=== PATIENT | female | born 1970 | race Caucasian/White ===

== ENCOUNTER 2017-04-20 13:02 | Emergency (ER) | payer MEDICAID ==
[~2017-04-20] VITALS: Ht 170.2 cm; Wt 113.9 kg
[2017-04-20 13:13] VITALS: BP 112/63
[2017-04-20] MEDS ORDERED: HYDROmorphone HCL 2 MG/ML VL IM ONE (14:45)
[2017-04-20] MEDS ORDERED: PROMETHAZINE HCL 25 MG/ML 1ML IM ONE (14:45)
[2017-04-20] MEDS ORDERED: diphenhdrAMINE HCL 25 MG CAP PO ONE (15:30)
== END 2017-04-20 15:38 | disposition home or self-care (01) ==
LOC: ER 13:02
DX: G89.29 Other chronic pain (principal); M54.5 Low back pain; J45.901 Unspecified asthma with (acute) exacerbation; Z88.6 Allergy status to analgesic agent
CPT/HCPCS: 96372; 99284; J1170; J2550

== ENCOUNTER 2017-05-12 16:12 | Emergency (ER) | payer MEDICAID ==
[~2017-05-12] VITALS: Ht 170.2 cm; Wt 115.8 kg
[2017-05-12 16:27] VITALS: BP 148/91
== END 2017-05-12 17:20 | disposition home or self-care (01) ==
LOC: ER 16:21
DX: L23.9 Allergic contact dermatitis, unspecified cause (principal); J45.909 Unspecified asthma, uncomplicated

== ENCOUNTER 2017-05-27 06:12 | Emergency (ER) | payer MEDICAID ==
[~2017-05-27] VITALS: Ht 170.2 cm; Wt 113.9 kg
[2017-05-27 07:02] LABS: Urine Bilirubin Negative (Negative); Urine Blood 1+ /uL (Negative); Urine Color Yellow (Yellow); Urine Glucose Normal (Normal); Urine Ketone Negative (Negative); Urine Mucus FEW (None Seen); Urine Nitrite Negative (Negative); Urine RBC <1 /hpf (0 - 4); Urine Squamous Epithelial Cell FEW /hpf (<5); Urine Urobilinogen Normal (Negative); Urine pH 5.5 (5.0-8.0)
[2017-05-27 07:21] LABS: Basophils # (auto) 0 uL; Basophils % (auto) 0.7 % (0.0-2.0); Eosinophils # (auto) 0.1 uL; Eosinophils % (auto) 1.5 % (0.0-7.0); Hematocrit 38.2 % (36.0-46.0); Hemoglobin 12.8 g/dL (12.2-16.2); Lymphocytes # (auto) 1.6 uL; Lymphocytes % (auto) 21.2 % (10.0-50.0); Mean Corpuscular Hemoglobin 29.6 pg (28.0-32.0); Mean Corpuscular Hgb Conc. 33.6 g/dL (32.0-36.0); Mean Corpuscular Volume 88.3 fL (80.0-100.0); Mean Platelet Volume 8.7 fL (6.9-10.8); Monocytes # (auto) 0.4 uL; Monocytes % (auto) 5.5 % (0.0-12.0); Neutrophils # (auto) 5.3 uL; Neutrophils % (auto) 71.1 % (37.0-80.0); Platelet Count (auto) 322 10^3/uL (140-450); Red Cell Distribution Width 14.3 % (11.8-14.3); White Blood Cell 7.5 10^3/uL (4.4-10.8)
[2017-05-27 07:40] LABS: Albumin 3.6 g/dL (3.4-5.0); BUN/Creatinine Ratio 20.5; Bilirubin, Total 0.7 mg/dL (0.2-1.0); Calcium 8.6 mg/dL (8.5-10.1); Potassium 3.9 mmol/L (3.5-5.1)
[2017-05-27] MEDS ORDERED: SODIUM CHLORIDE 0.9% 1,000 ML IVB ONE (10:20)
[2017-05-27] MEDS ORDERED: PROMETHAZINE HCL 25 MG/ML 1ML IV PRN (10:30)
[2017-05-27] MEDS ORDERED: NALBUPHINE HCL 10 MG/1ml INJECTION IV ONE (10:30)
[2017-05-27] MEDS ORDERED: PROMETHAZINE HCL 25 MG/ML 1ML ONE (10:33)
[2017-05-27 13:38] VITALS: BP 132/76
== END 2017-05-27 13:39 | disposition home or self-care (01) ==
LOC: ER 06:12
DX: K52.9 Noninfective gastroenteritis and colitis, unspecified (principal); K90.49 Malabsorption due to intolerance, not elsewhere classified; J45.909 Unspecified asthma, uncomplicated; Z88.6 Allergy status to analgesic agent
CPT/HCPCS: 36415; 74176; 80053; 81001; 81025; 82150; 83690; 85025; 94761; 96361; 96374; 96375; 99285; J2300; J2550; J7030

== ENCOUNTER 2017-11-20 16:52 | Emergency (ER) | payer MEDICAID ==
[~2017-11-20] VITALS: Ht 170.2 cm; Wt 117.9 kg
[2017-11-20] MEDS ORDERED: HYDROmorphone HCL 2 MG/ML VL IV ONE (17:30)
[2017-11-20] MEDS ORDERED: METOCLOPRAMIDE HCL 5MG/ml INJ 2ml VIAL IV ONE (17:30)
[2017-11-20 19:13] LABS: Basophils # (auto) 0 uL; Basophils % (auto) 0.5 % (0.0-2.0); Eosinophils # (auto) 0.2 uL; Eosinophils % (auto) 3.1 % (0.0-7.0); Hematocrit 28.6 % (36.0-46.0); Hemoglobin 9.6 g/dL (12.2-16.2); Lymphocytes # (auto) 1.4 uL; Lymphocytes % (auto) 24.2 % (10.0-50.0); Mean Corpuscular Hemoglobin 29.2 pg (28.0-32.0); Mean Corpuscular Hgb Conc. 33.5 g/dL (32.0-36.0); Mean Corpuscular Volume 87.2 fL (80.0-100.0); Monocytes # (auto) 0.5 uL; Monocytes % (auto) 8.7 % (0.0-12.0); Neutrophils # (auto) 3.7 uL; Neutrophils % (auto) 63.5 % (37.0-80.0); Nucleated Red Blood Cells % 0.3 %; Platelet Count (auto) 387 10^3/uL (140-450); Red Blood Cells 3.28 10^6/uL (4.0-5.20); Red Cell Distribution Width 15.1 % (11.8-14.3); White Blood Cell 5.9 10^3/uL (4.4-10.8)
[2017-11-20 19:17] LABS: Albumin 2.9 g/dL (3.4-5.0); BUN/Creatinine Ratio 16.2; Calcium 8.4 mg/dL (8.5-10.1); Potassium 3.7 mmol/L (3.5-5.1)
[2017-11-20 19:29] LABS: Bilirubin, Total 0.3 mg/dL (0.2-1.0); Total Protein 7.3 g/dL (6.4-8.2)
[2017-11-20 20:35] VITALS: BP 149/98
== END 2017-11-20 20:49 | disposition home or self-care (01) ==
LOC: EDBD 16:52 → ER 16:55
DX: G89.29 Other chronic pain (principal); M54.5 Low back pain; J45.909 Unspecified asthma, uncomplicated; M79.604 Pain in right leg; Z88.6 Allergy status to analgesic agent; X58.XXXA Exposure to other specified factors, initial encounter; Y93.89 Activity, other specified; Y92.89 Other specified places as the place of occurrence of the external cause; Y99.8 Other external cause status
CPT/HCPCS: 36415; 80053; 85025; 93971; 94761; 96374; 96375; 99285; J1170; J2765

== ENCOUNTER 2018-02-27 10:35 | Observation (INO) | payer MEDICAID ==
[~2018-02-27] VITALS: Ht 170.2 cm; Wt 114.8 kg
[2018-02-27 10:54] LABS: Urine WBC None Seen /hpf (0 - 5)
[2018-02-27 11:03] LABS: Urine Pregnacy Test Negative (Negative)
[2018-02-27 11:05] LABS: Basophils # (auto) 0 uL; Basophils % (auto) 0.5 % (0.0-2.0); Eosinophils # (auto) 0.1 uL; Eosinophils % (auto) 1.8 % (0.0-7.0); Hematocrit 38.8 % (36.0-46.0); Hemoglobin 12.6 g/dL (12.2-16.2); Lymphocytes # (auto) 2.2 uL; Lymphocytes % (auto) 35.7 % (10.0-50.0); Mean Corpuscular Hemoglobin 27.1 pg (28.0-32.0); Mean Corpuscular Hgb Conc. 32.6 g/dL (32.0-36.0); Mean Corpuscular Volume 83.1 fL (80.0-100.0); Monocytes # (auto) 0.4 uL; Neutrophils # (auto) 3.4 uL; Nucleated Red Blood Cells % 0.1 %; Platelet Count (auto) 369 10^3/uL (140-450); Red Blood Cells 4.67 10^6/uL (4.0-5.20); Red Cell Distribution Width 16.6 % (11.8-14.3); White Blood Cell 6.1 10^3/uL (4.4-10.8)
[2018-02-27 11:18] LABS: Alcohol, Urine < 3.0 mg/dL (0-5); Amphetamine Screen, Urine NEGATIVE (NEGATIVE); Barbiturate Scree,Urine NEGATIVE (NEGATIVE); Benzodiazephine Screen, Urine NEGATIVE (NEGATIVE); Cannabinoid Screen, Urine NEGATIVE (NEGATIVE); Cocaine Screen, Urine NEGATIVE (NEGATIVE); Opiate Scree,Urine NEGATIVE (NEGATIVE); Phencyclidine Screen, Urine NEGATIVE (NEGATIVE)
[2018-02-27 11:26] LABS: Alanine Aminotransferase 21 U/L (13-56); Albumin 3.6 g/dL (3.4-5.0); Alkaline Phosphatase 110 U/L (45-117); Anion Gap 9 (5-15); Aspartate Aminotransferase 11 U/L (15-37); BUN/Creatinine Ratio 18.9; Bilirubin, Total 0.6 mg/dL (0.2-1.0); Blood Urea Nitrogen 14 mg/dL (7-18); Calcium 8.7 mg/dL (8.5-10.1); Carbon Dioxide 22 mmol/L (21-32); Chloride 107 mmol/L (98-107); GFR African American 109 mL/min; GFR Non-African American 90 mL/min; Glucose 98 mg/dL (74-106); Sodium 138 mmol/L (136-145); Total Protein 8.4 g/dL (6.4-8.2)
[2018-02-27 11:31] LABS: Urine Bacteria FEW /hpf (None Seen); Urine Blood Negative /uL (Negative); Urine Hyaline Cast FEW /lpf (0 - 2); Urine Mucus FEW (None Seen); Urine Specific Gravity 1.028 (1.001-1.035)
[2018-02-27] MEDS ORDERED: ASPirin 81 mg TAB PO ONE (13:15)
[2018-02-27 13:48] LABS: INR 0.94 (0.9-1.15); Partial Thromboplastin Time 28.5 sec (23.78-33.04); Prothrombin Time 10.1 sec (9.27-12.13)
[2018-02-27] MEDS ORDERED: PROMETHAZINE HCL 25 MG/ML 1ML ONE (14:43)
[2018-02-27] MEDS ORDERED: IOHEXOL 350 MG/ML 100ML IJ ONE (14:47)
[2018-02-27] MEDS ORDERED: PROMETHAZINE HCL 25 MG/ML 1ML IV ONE (16:00)
[2018-02-27 19:30] VITALS: BP 137/82
== END 2018-02-27 20:16 | disposition home or self-care (01) | DRG 203 ==
LOC: ER 10:37 → OVERFLOW 10:38 → ER 20:16
PROVIDERS: ADMIT Family Medicine; ATTEND Family Medicine
DX: R07.89 Other chest pain (principal); J45.909 Unspecified asthma, uncomplicated; Z98.890 Other specified postprocedural states
CPT/HCPCS: 36415; 71046; 71275; 80053; 80307; 81001; 81025; 83735; 83880; 84443; 84484; 85025; 85379; 85610; 85730; 93005; 96374; 99285; G0378; J2550; Q9967

== ENCOUNTER 2018-10-10 09:45 | Emergency (ER) | payer MEDICAID ==
[~2018-10-10] VITALS: Ht 170.2 cm; Wt 132.9 kg
[2018-10-10 10:15] VITALS: BP 171/92
== END 2018-10-10 11:01 | disposition home or self-care (01) ==
LOC: ER 09:45
DX: S63.501A Unspecified sprain of right wrist, initial encounter (principal); J45.909 Unspecified asthma, uncomplicated; Z88.5 Allergy status to narcotic agent; X50.9XXA Other and unspecified overexertion or strenuous movements or postures, initial encounter; Y93.89 Activity, other specified; Y99.8 Other external cause status; Y92.89 Other specified places as the place of occurrence of the external cause
CPT/HCPCS: 29125; 73110

== ENCOUNTER 2019-01-27 01:24 | Emergency (ER) | payer MEDICAID ==
[~2019-01-27] VITALS: Ht 170.2 cm; Wt 132.0 kg
[2019-01-27] MEDS ORDERED: LORazepam 2MG/ML-1ML VIAL IV ONE (03:45)
[2019-01-27] MEDS ORDERED: SODIUM CHLORIDE 0.9% 1,000 ML IV ONE (03:45)
[2019-01-27 04:09] LABS: Basophils # (auto) 0 uL; Basophils % (auto) 0.4 % (0.0-2.0); Eosinophils # (auto) 0.1 uL; Eosinophils % (auto) 0.9 % (0.0-7.0); Hematocrit 38.4 % (36.0-46.0); Hemoglobin 12.7 g/dL (12.2-16.2); Lymphocytes # (auto) 1.5 uL; Lymphocytes % (auto) 23.5 % (10.0-50.0); Mean Corpuscular Hemoglobin 28.2 pg (28.0-32.0); Mean Corpuscular Volume 85.5 fL (80.0-100.0); Monocytes # (auto) 0.4 uL; Monocytes % (auto) 6.1 % (0.0-12.0); Neutrophils # (auto) 4.4 uL; Neutrophils % (auto) 69.1 % (37.0-80.0); Platelet Count (auto) 384 10^3/uL (140-450); Red Blood Cells 4.49 10^6/uL (4.0-5.20); Red Cell Distribution Width 16.9 % (11.8-14.3); White Blood Cell 6.4 10^3/uL (4.4-10.8)
[2019-01-27 04:28] LABS: Albumin 3.6 g/dL (3.4-5.0); BUN/Creatinine Ratio 21.8; Calcium 8.8 mg/dL (8.5-10.1); Potassium 3.6 mmol/L (3.5-5.1)
[2019-01-27] MEDS ORDERED: ONDANSETRON HCL 4 MG/2 ML VIAL IV ONE (04:30)
[2019-01-27 04:31] LABS: Bilirubin, Total 0.5 mg/dL (0.2-1.0); Total Protein 8.2 g/dL (6.4-8.2)
[2019-01-27 06:14] VITALS: BP 118/70
== END 2019-01-27 05:36 | disposition home or self-care (01) ==
LOC: EDBD 01:24 → ER 01:27
DX: K52.9 Noninfective gastroenteritis and colitis, unspecified (principal); F15.93 Other stimulant use, unspecified with withdrawal; J45.909 Unspecified asthma, uncomplicated; I10 Essential (primary) hypertension; G89.29 Other chronic pain; M54.9 Dorsalgia, unspecified; Z88.5 Allergy status to narcotic agent
CPT/HCPCS: 36415; 74176; 80053; 80329; 85025; 96361; 96374; 96375; 99284; J2060; J2405; J7030

== ENCOUNTER 2019-01-29 07:52 | Emergency (ER) | payer MEDICAID ==
[~2019-01-29] VITALS: Ht 170.2 cm; Wt 117.9 kg
[2019-01-29 10:05] LABS: Basophils # (auto) 0.1 uL; Basophils % (auto) 0.8 % (0.0-2.0); Eosinophils # (auto) 0 uL; Eosinophils % (auto) 0.5 % (0.0-7.0); Hematocrit 37.9 % (36.0-46.0); Hemoglobin 12.7 g/dL (12.2-16.2); Lymphocytes # (auto) 1.5 uL; Lymphocytes % (auto) 20.8 % (10.0-50.0); Mean Corpuscular Hemoglobin 28.2 pg (28.0-32.0); Mean Corpuscular Hgb Conc. 33.5 g/dL (32.0-36.0); Mean Corpuscular Volume 84.3 fL (80.0-100.0); Monocytes # (auto) 0.4 uL; Monocytes % (auto) 5.9 % (0.0-12.0); Neutrophils # (auto) 5.2 uL; Platelet Count (auto) 386 10^3/uL (140-450); Red Cell Distribution Width 16.5 % (11.8-14.3); White Blood Cell 7.2 10^3/uL (4.4-10.8)
[2019-01-29 10:32] LABS: Albumin 3.6 g/dL (3.4-5.0); Calcium 8.9 mg/dL (8.5-10.1); Potassium 3.3 mmol/L (3.5-5.1)
[2019-01-29 10:35] LABS: Bilirubin, Total 0.7 mg/dL (0.2-1.0); Total Protein 8.5 g/dL (6.4-8.2)
[2019-01-29] MEDS ORDERED: KETOROLAC TROMETH 15 mg/ml 1ML VL IV ONE (11:15)
[2019-01-29] MEDS ORDERED: METOCLOPRAMIDE HCL 5MG/ml INJ 2ml VIAL IV ONE (11:15)
[2019-01-29] MEDS ORDERED: SODIUM CHLORIDE 0.9% 1,000 ML IV ONE ×2 (11:45→13:05)
[2019-01-29 11:53] VITALS: BP 147/76
[2019-01-29 13:02] LABS: Urine Bacteria FEW /hpf (None Seen); Urine Blood 3+ /uL (Negative); Urine Mucus MANY (None Seen); Urine Specific Gravity 1.018 (1.001-1.035); Urine WBC 24075 /hpf (0 - 5); Urine WBC Clumps PRESENT /hpf (None Seen)
[2019-01-29] MEDS ORDERED: IOHEXOL 300 MG/ML 100ML BOTTLE IJ ONE (13:28)
[2019-01-29] MEDS ORDERED: POTASSIUM EFFERVESENT TAB 25 MEQ PO ONE (15:30)
== END 2019-01-29 16:17 | disposition home or self-care (01) ==
LOC: ER 07:52 → EDBD 07:52 → ER 16:03
DX: K76.0 Fatty (change of) liver, not elsewhere classified (principal); N39.0 Urinary tract infection, site not specified; E87.6 Hypokalemia; I10 Essential (primary) hypertension; J45.909 Unspecified asthma, uncomplicated; Z88.6 Allergy status to analgesic agent
CPT/HCPCS: 36415; 71046; 74177; 80053; 81001; 82150; 83690; 85025; 93005; 96361; 96374; 96375; 99284; J1885; J2765; J7030; Q9967

== ENCOUNTER 2020-03-09 14:43 | Emergency (ER) | payer MEDICAID ==
[~2020-03-09] VITALS: Ht 170.2 cm; Wt 111.1 kg
[2020-03-09 17:00] VITALS: BP 138/69
== END 2020-03-09 17:11 | disposition home or self-care (01) ==
LOC: ER 14:43
DX: K59.00 Constipation, unspecified (principal); Z88.5 Allergy status to narcotic agent
CPT/HCPCS: 74176

== ENCOUNTER 2020-03-29 21:34 | Emergency (ER) | payer MEDICAID ==
[~2020-03-29] VITALS: Ht 170.2 cm; Wt 129.3 kg
[2020-03-29 22:47] LABS: Basophils # (auto) 0 10 ^3/uL (0-0.2); Basophils % (auto) 0.6 % (0.0-2.0); Eosinophils # (auto) 0.2 10 ^3/uL (0-0.8); Eosinophils % (auto) 3.2 % (0.0-7.0); Hemoglobin 12.4 g/dL (12.2-16.2); Lymphocytes # (auto) 2.3 10 ^3/uL (0.4-5.4); Lymphocytes % (auto) 33.9 % (10.0-50.0); Mean Corpuscular Hemoglobin 28.2 pg (28.0-32.0); Mean Corpuscular Hgb Conc. 33.5 g/dL (32.0-36.0); Mean Corpuscular Volume 84.3 fL (80.0-100.0); Monocytes # (auto) 0.4 10 ^3/uL (0-1.3); Monocytes % (auto) 6.6 % (0.0-12.0); Neutrophils # (auto) 3.7 10 ^3/uL (1.6-8.6); Neutrophils % (auto) 55.7 % (37.0-80.0); Nucleated Red Blood Cells % 0.1 %; Platelet Count (auto) 298 10^3/uL (140-450); Red Blood Cells 4.39 10^6/uL (4.0-5.20); Red Cell Distribution Width 15.7 % (11.8-14.3); White Blood Cell 6.7 10^3/uL (4.4-10.8)
[2020-03-29 23:03] LABS: Albumin 3.9 g/dL (3.4-5.0); Anion Gap 5 (5-15); Blood Urea Nitrogen 16 mg/dL (7-18); Calcium 8.5 mg/dL (8.5-10.1); Carbon Dioxide 29 mmol/L (21-32); Chloride 105 mmol/L (98-107); Glucose 113 mg/dL (74-106); Potassium 3.3 mmol/L (3.5-5.1); Sodium 139 mmol/L (136-145)
[2020-03-29 23:09] LABS: INR 1.02 (0.9-1.15); Partial Thromboplastin Time 25.8 sec (23.0-31.2)
[2020-03-29] MEDS ORDERED: IOHEXOL 350 MG/ML 100ML IJ ONE (23:21)
[2020-03-29 23:26] LABS: Alanine Aminotransferase 32 U/L (13-56); Alkaline Phosphatase 79 U/L (45-117); Aspartate Aminotransferase 23 U/L (15-37); BUN/Creatinine Ratio 18.2; Bilirubin, Total 0.5 mg/dL (0.2-1.0); GFR African American 88 mL/min; GFR Non-African American 73 mL/min; Total Protein 7.6 g/dL (6.4-8.2)
[2020-03-30 02:00] VITALS: BP 111/63
== END 2020-03-30 02:07 | disposition other institution (70) ==
LOC: EDBD 21:34 → ER 21:40
DX: R07.89 Other chest pain (principal); K21.9 Gastro-esophageal reflux disease without esophagitis; I44.4 Left anterior fascicular block; I10 Essential (primary) hypertension; J45.909 Unspecified asthma, uncomplicated; E66.8 Other obesity; Z68.42 Body mass index [BMI] 45.0-49.9, adult; Z98.890 Other specified postprocedural states
CPT/HCPCS: 36415; 71045; 71275; 80053; 83880; 84443; 84484; 84702; 85025; 85379; 85610; 85730; 93005; 93971; 99285; Q9967

== ENCOUNTER 2020-05-09 10:42 | Emergency (ER) | payer MEDICAID ==
[~2020-05-09] VITALS: Ht 170.2 cm; Wt 122.5 kg
[2020-05-09] MEDS ORDERED: SODIUM CHLORIDE 0.9% 1,000 ML IV ONE (11:45)
[2020-05-09] MEDS ORDERED: SODIUM CHLORIDE 0.9% 1,000 ML IVB ONE (11:45)
[2020-05-09 11:56] LABS: Basophils # (auto) 0 10 ^3/uL (0-0.2); Basophils % (auto) 0.7 % (0.0-2.0); Eosinophils # (auto) 0.1 10 ^3/uL (0-0.8); Hemoglobin 12.8 g/dL (12.2-16.2); Lymphocytes # (auto) 1.9 10 ^3/uL (0.4-5.4); Lymphocytes % (auto) 27.1 % (10.0-50.0); Mean Corpuscular Hemoglobin 27.6 pg (28.0-32.0); Mean Corpuscular Hgb Conc. 32.8 g/dL (32.0-36.0); Mean Corpuscular Volume 83.9 fL (80.0-100.0); Monocytes # (auto) 0.4 10 ^3/uL (0-1.3); Monocytes % (auto) 6.4 % (0.0-12.0); Neutrophils # (auto) 4.5 10 ^3/uL (1.6-8.6); Neutrophils % (auto) 63.8 % (37.0-80.0); Nucleated Red Blood Cells % 0.1 %; Platelet Count (auto) 317 10^3/uL (140-450); Red Blood Cells 4.64 10^6/uL (4.0-5.20); Red Cell Distribution Width 15.7 % (11.8-14.3)
[2020-05-09 12:14] LABS: Albumin 4.1 g/dL (3.4-5.0); Calcium 8.8 mg/dL (8.5-10.1); Potassium 3.3 mmol/L (3.5-5.1)
[2020-05-09 12:18] LABS: BUN/Creatinine Ratio 24.5; Bilirubin, Total 0.5 mg/dL (0.2-1.0); Total Protein 7.7 g/dL (6.4-8.2)
[2020-05-09] MEDS ORDERED: POTASSIUM EFFERVESENT TAB 25 MEQ PO ONE (13:00)
[2020-05-09 15:00] VITALS: BP 102/56
[2020-05-09 16:03] LABS: Urine Bacteria FEW /hpf (None Seen); Urine Blood Negative /uL (Negative); Urine Mucus FEW (None Seen); Urine Specific Gravity 1.023 (1.001-1.035); Urine WBC 3 /hpf (0 - 5)
== END 2020-05-09 15:46 | disposition home or self-care (01) ==
LOC: ER 10:42
DX: I95.89 Other hypotension (principal); R42 Dizziness and giddiness; J45.909 Unspecified asthma, uncomplicated; I10 Essential (primary) hypertension; E87.6 Hypokalemia; Z88.6 Allergy status to analgesic agent
CPT/HCPCS: 36415; 71046; 80053; 81001; 83735; 85025; 93005; 96360; 96361; 99285; J7030

== ENCOUNTER 2020-08-29 05:27 | Inpatient (IN) | payer MEDICAID ==
[~2020-08-29] VITALS: Ht 170.2 cm; Wt 263.4 kg
[2020-08-29] MEDS ORDERED: SODIUM CHLORIDE 0.9% 1,000 ML IV ONE (06:30)
[2020-08-29 06:59] LABS: Basophils # (auto) 0 10 ^3/uL (0-0.2); Basophils % (auto) 0.4 % (0.0-2.0); Eosinophils # (auto) 0 10 ^3/uL (0-0.8); Eosinophils % (auto) 0.4 % (0.0-7.0); Hematocrit 38.3 % (36.0-46.0); Hemoglobin 12.8 g/dL (12.2-16.2); Lymphocytes # (auto) 0.7 10 ^3/uL (0.4-5.4); Lymphocytes % (auto) 5.1 % (10.0-50.0); Mean Corpuscular Hemoglobin 29.2 pg (28.0-32.0); Mean Corpuscular Hgb Conc. 33.5 g/dL (32.0-36.0); Monocytes # (auto) 1.2 10 ^3/uL (0-1.3); Monocytes % (auto) 9.2 % (0.0-12.0); Neutrophils % (auto) 84.9 % (37.0-80.0); Nucleated Red Blood Cells % 0.1 %; Platelet Count (auto) 338 10^3/uL (140-450); Red Cell Distribution Width 15.2 % (11.8-14.3); White Blood Cell 12.9 10^3/uL (4.4-10.8)
[2020-08-29] MEDS ORDERED: HYDROmorphone HCL 2 MG/ML VL IV ONE ×2 (07:00→10:45)
[2020-08-29] MEDS ORDERED: METOCLOPRAMIDE HCL 5MG/ml INJ 2ml VIAL IV ONE (07:00)
[2020-08-29 07:16] LABS: Albumin 3.1 g/dL (3.4-5.0); Calcium 8.2 mg/dL (8.5-10.1); Potassium 3.3 mmol/L (3.5-5.1)
[2020-08-29 07:21] LABS: Bilirubin, Total 0.8 mg/dL (0.2-1.0); Total Protein 7.7 g/dL (6.4-8.2)
[2020-08-29 07:22] LABS: Urine Bacteria NONE SEEN /hpf (None Seen); Urine Blood 3+ /uL (Negative); Urine Mucus FEW (None Seen); Urine Specific Gravity 1.033 (1.001-1.035); Urine WBC 21 /hpf (0 - 5)
[2020-08-29] MEDS ORDERED: IOHEXOL 300 MG/ML 100ML BOTTLE IJ ONE (07:40)
[2020-08-29] MEDS ORDERED: LACTATED RINGER'S 1,000 ML IV ONE (08:45)
[2020-08-29] MEDS ORDERED: metroNIDAZOLE 500MG/100ML 100 ML IV ONE (08:45)
[2020-08-29] MEDS ORDERED: CIPROFLOXACIN 400MG/200ML 200 ML IV ONE (10:00)
[2020-08-29] MEDS: POTASSIUM CHL 20MEQ/100ML 100 ML IV SCH ×4 (10:24→12:37)
[2020-08-29] MEDS ORDERED: MORPHINE SULF INJ 2 MG/ML SYRINGE 1ML IV PRN (11:15)
[2020-08-29] MEDS ORDERED: NITROGLYCERIN 0.4 MG SL TAB SL PRN (11:15)
[2020-08-29] MEDS: D5W/SOD CHL 0.45%/KCL 40MEQ 1,000 ML IV SCH ×2 (12:15→23:24)
[2020-08-29] MEDS: metroNIDAZOLE 500MG/100ML 100 ML IV SCH ×2 (14:00→21:49)
[2020-08-29] MEDS: HYDROmorphone HCL 2 MG/ML VL IV PRN ×2 (15:55→21:01)
[2020-08-29] MEDS: ONDANSETRON HCL 4 MG/2 ML VIAL IV PRN (21:01)
[2020-08-29] MEDS: GABAPENTIN 300 MG CAP PO SCH (21:49)
[2020-08-29] MEDS: AMITRIPTYLINE HCL 25 MG TAB PO SCH (21:49)
[2020-08-30] VITALS (7 sets, daily range): BP systolic 119–124; BP diastolic 62–79
[2020-08-30] MEDS: HYDROmorphone HCL 2 MG/ML VL IV PRN ×4 (03:53→21:29)
[2020-08-30] MEDS: ONDANSETRON HCL 4 MG/2 ML VIAL IV PRN ×2 (03:53→11:26)
[2020-08-30] MEDS ORDERED: GABA100C PO (05:02)
[2020-08-30] MEDS ORDERED: AMIT25TA9 PO (05:02)
[2020-08-30] MEDS: metroNIDAZOLE 500MG/100ML 100 ML IV SCH ×3 (06:00→21:33)
[2020-08-30] MEDS: D5W/SOD CHL 0.45%/KCL 40MEQ 1,000 ML IV SCH (07:15)
[2020-08-30 09:04] LABS: Basophils # (auto) 0 10 ^3/uL (0-0.2); Basophils % (auto) 0.2 % (0.0-2.0); Eosinophils # (auto) 0.3 10 ^3/uL (0-0.8); Eosinophils % (auto) 4.3 % (0.0-7.0); Hematocrit 32.9 % (36.0-46.0); Lymphocytes # (auto) 1.1 10 ^3/uL (0.4-5.4); Lymphocytes % (auto) 17.4 % (10.0-50.0); Mean Corpuscular Hemoglobin 29.3 pg (28.0-32.0); Mean Corpuscular Hgb Conc. 33.4 g/dL (32.0-36.0); Mean Corpuscular Volume 87.9 fL (80.0-100.0); Monocytes # (auto) 0.5 10 ^3/uL (0-1.3); Monocytes % (auto) 8.4 % (0.0-12.0); Neutrophils # (auto) 4.4 10 ^3/uL (1.6-8.6); Neutrophils % (auto) 69.7 % (37.0-80.0); Nucleated Red Blood Cells % 0.1 %; Platelet Count (auto) 267 10^3/uL (140-450); Red Blood Cells 3.74 10^6/uL (4.0-5.20); Red Cell Distribution Width 15.2 % (11.8-14.3); White Blood Cell 6.3 10^3/uL (4.4-10.8)
[2020-08-30 09:26] LABS: INR 1.08 (0.9-1.15); Partial Thromboplastin Time 25.7 sec (23.0-31.2)
[2020-08-30 09:27] LABS: Albumin 2.8 g/dL (3.4-5.0); BUN/Creatinine Ratio 14.1; Bilirubin, Total 0.4 mg/dL (0.2-1.0); Calcium 8.5 mg/dL (8.5-10.1)
[2020-08-30] MEDS: GABAPENTIN 300 MG CAP PO SCH ×2 (11:09→21:41)
[2020-08-30] MEDS: cefTRIAXone 1GM/50ML D5W 50 ML IV SCH (11:09)
[2020-08-30] MEDS ORDERED: POTASSIUM CHLORIDE 20 MEQ, LIDOCAINE 1% (LOCAL ANESTH.) 2 ML in SODIUM CHL 0.9% 100 ML IV ONE (13:15)
[2020-08-30] MEDS: SOD CHL 0.9%/ KCL 40MEQ 1,000 ML IV SCH ×2 (16:03→23:42)
[2020-08-30] MEDS: VANCOMYCIN HCL 500MG/5ML ORAL SOL PO SCH ×2 (17:33→21:41)
[2020-08-30] MEDS: AMITRIPTYLINE HCL 25 MG TAB PO SCH (21:40)
[2020-08-31 05:00] VITALS: BP 117/69
[2020-08-31] MEDS: HYDROmorphone HCL 2 MG/ML VL IV PRN ×4 (06:22→21:54)
[2020-08-31] MEDS: metroNIDAZOLE 500MG/100ML 100 ML IV SCH ×3 (06:22→22:01)
[2020-08-31] MEDS: VANCOMYCIN HCL 500MG/5ML ORAL SOL PO SCH ×4 (06:23→22:02)
[2020-08-31 06:55] LABS: Potassium 4.2 mmol/L (3.5-5.1)
[2020-08-31 07:01] LABS: BUN/Creatinine Ratio 10.4; Calcium 8.8 mg/dL (8.5-10.1)
[2020-08-31 09:00] VITALS: BP 121/76
[2020-08-31] MEDS: GABAPENTIN 300 MG CAP PO SCH ×2 (09:01→22:02)
[2020-08-31] MEDS: cefTRIAXone 1GM/50ML D5W 50 ML IV SCH (09:01)
[2020-08-31] MEDS: SOD CHL 0.9%/ KCL 40MEQ 1,000 ML IV SCH ×2 (09:25→11:52)
[2020-08-31] MEDS ORDERED: DICYCLOMINE HCL 10 MG CAP PO PRN (10:15)
[2020-08-31] MEDS: CHOLESTYRAMINE 4 GM POWDER PO SCH ×2 (10:51→17:45)
[2020-08-31 12:36] VITALS: BP 127/78
[2020-08-31 16:35] VITALS: BP 125/78
[2020-08-31] MEDS: ONDANSETRON HCL 4 MG/2 ML VIAL IV PRN (20:25)
[2020-08-31] MEDS: AMITRIPTYLINE HCL 25 MG TAB PO SCH (22:02)
[2020-08-31 22:11] VITALS: BP 163/92
[2020-09-01] MEDS: CHOLESTYRAMINE 4 GM POWDER PO SCH ×4 (00:28→18:30)
[2020-09-01] MEDS: SOD CHL 0.9%/ KCL 40MEQ 1,000 ML IV SCH ×2 (00:29→13:41)
[2020-09-01 04:41] VITALS: BP 93/59
[2020-09-01] MEDS: metroNIDAZOLE 500MG/100ML 100 ML IV SCH ×3 (06:47→21:35)
[2020-09-01] MEDS: HYDROmorphone HCL 2 MG/ML VL IV PRN ×4 (06:49→21:36)
[2020-09-01] MEDS: VANCOMYCIN HCL 500MG/5ML ORAL SOL PO SCH ×4 (06:49→21:36)
[2020-09-01] MEDS: ONDANSETRON HCL 4 MG/2 ML VIAL IV PRN ×2 (07:06→13:40)
[2020-09-01 08:25] VITALS: BP 121/78
[2020-09-01 09:00] VITALS: BP 121/78
[2020-09-01] MEDS: GABAPENTIN 300 MG CAP PO SCH ×2 (09:28→21:36)
[2020-09-01] MEDS: FLORASTOR (S. BOULARDII) 250 MG CAP PO SCH ×2 (11:22→21:36)
[2020-09-01] MEDS ORDERED: DICYCLOMINE HCL (10MG/ML) 2 ML AMPULE IM SCH (12:00)
[2020-09-01 13:00] VITALS: BP 130/83
[2020-09-01] MEDS: KETOROLAC TROMETH 30 MG/ML 1ML VIAL IV PRN (13:40)
[2020-09-01 16:58] VITALS: BP 118/71
[2020-09-01] MEDS: HYOSCYAMINE SULF 0.125 MG ODT TAB PO PRN (21:36)
[2020-09-01] MEDS: AMITRIPTYLINE HCL 25 MG TAB PO SCH (21:36)
[2020-09-01 22:00] VITALS: BP 144/86
[2020-09-02] MEDS: CHOLESTYRAMINE 4 GM POWDER PO SCH ×5 (00:25→23:58)
[2020-09-02] MEDS: HYDROmorphone HCL 2 MG/ML VL IV PRN ×6 (00:33→20:57)
[2020-09-02] MEDS: SOD CHL 0.9%/ KCL 40MEQ 1,000 ML IV SCH (03:13)
[2020-09-02 05:00] VITALS: BP 121/80
[2020-09-02] MEDS: VANCOMYCIN HCL 500MG/5ML ORAL SOL PO SCH ×4 (05:06→21:19)
[2020-09-02] MEDS: metroNIDAZOLE 500MG/100ML 100 ML IV SCH ×3 (05:06→20:57)
[2020-09-02 08:00] VITALS: BP 102/68
[2020-09-02 09:00] VITALS: BP 102/68
[2020-09-02] MEDS: ONDANSETRON HCL 4 MG/2 ML VIAL IV PRN (10:42)
[2020-09-02] MEDS: FLORASTOR (S. BOULARDII) 250 MG CAP PO SCH ×2 (10:42→20:58)
[2020-09-02] MEDS: GABAPENTIN 300 MG CAP PO SCH ×2 (10:42→20:58)
[2020-09-02 13:00] VITALS: BP 136/85
[2020-09-02 16:29] VITALS: BP 139/74
[2020-09-02] MEDS: AMITRIPTYLINE HCL 25 MG TAB PO SCH (20:58)
[2020-09-02 22:00] VITALS: BP 148/94
[2020-09-03] MEDS: HYDROmorphone HCL 2 MG/ML VL IV PRN ×5 (00:17→21:00)
[2020-09-03 05:00] VITALS: BP 132/76
[2020-09-03] MEDS: CHOLESTYRAMINE 4 GM POWDER PO SCH ×2 (05:31→21:02)
[2020-09-03] MEDS: metroNIDAZOLE 500MG/100ML 100 ML IV SCH ×3 (05:31→21:00)
[2020-09-03] MEDS: VANCOMYCIN HCL 500MG/5ML ORAL SOL PO SCH ×4 (05:32→21:01)
[2020-09-03] MEDS: KETOROLAC TROMETH 30 MG/ML 1ML VIAL IV PRN ×3 (05:43→22:46)
[2020-09-03] MEDS: ONDANSETRON HCL 4 MG/2 ML VIAL IV PRN ×2 (05:43→13:04)
[2020-09-03 06:59] LABS: Basophils # (auto) 0 10 ^3/uL (0-0.2); Basophils % (auto) 0.3 % (0.0-2.0); Eosinophils # (auto) 0.3 10 ^3/uL (0-0.8); Eosinophils % (auto) 3.9 % (0.0-7.0); Hematocrit 32.6 % (36.0-46.0); Hemoglobin 10.8 g/dL (12.2-16.2); Lymphocytes # (auto) 1.6 10 ^3/uL (0.4-5.4); Lymphocytes % (auto) 18.9 % (10.0-50.0); Mean Corpuscular Hemoglobin 28.6 pg (28.0-32.0); Mean Corpuscular Volume 86.8 fL (80.0-100.0); Monocytes # (auto) 0.8 10 ^3/uL (0-1.3); Monocytes % (auto) 8.7 % (0.0-12.0); Neutrophils # (auto) 5.9 10 ^3/uL (1.6-8.6); Neutrophils % (auto) 68.2 % (37.0-80.0); Platelet Count (auto) 329 10^3/uL (140-450); Red Blood Cells 3.76 10^6/uL (4.0-5.20); White Blood Cell 8.7 10^3/uL (4.4-10.8)
[2020-09-03 07:17] LABS: Potassium 3.9 mmol/L (3.5-5.1)
[2020-09-03 07:21] LABS: BUN/Creatinine Ratio 12.7; Calcium 8.6 mg/dL (8.5-10.1)
[2020-09-03 09:00] VITALS: BP 115/74
[2020-09-03] MEDS: GABAPENTIN 300 MG CAP PO SCH ×2 (09:55→21:01)
[2020-09-03] MEDS: FLORASTOR (S. BOULARDII) 250 MG CAP PO SCH ×2 (09:56→22:00)
[2020-09-03 13:00] VITALS: BP 118/84
[2020-09-03 17:00] VITALS: BP 119/77
[2020-09-03] MEDS: AMITRIPTYLINE HCL 25 MG TAB PO SCH (21:01)
[2020-09-03 22:00] VITALS: BP 137/82
[2020-09-04] MEDS: HYDROmorphone HCL 2 MG/ML VL IV PRN ×8 (00:19→22:25)
[2020-09-04] MEDS: HYOSCYAMINE SULF 0.125 MG ODT TAB PO PRN ×4 (00:19→19:15)
[2020-09-04 04:54] VITALS: BP 114/72
[2020-09-04] MEDS: metroNIDAZOLE 500MG/100ML 100 ML IV SCH ×3 (06:20→21:32)
[2020-09-04] MEDS: VANCOMYCIN HCL 500MG/5ML ORAL SOL PO SCH ×4 (06:21→21:32)
[2020-09-04 09:00] VITALS: BP 123/75
[2020-09-04] MEDS: GABAPENTIN 300 MG CAP PO SCH ×2 (09:33→21:32)
[2020-09-04] MEDS: FLORASTOR (S. BOULARDII) 250 MG CAP PO SCH ×2 (09:33→21:32)
[2020-09-04] MEDS ORDERED: FUROSEMIDE 40 MG TAB PO ONE (10:15)
[2020-09-04] MEDS ORDERED: POTASSIUM CHL 10 Meq TABLET PO ONE (10:15)
[2020-09-04] MEDS: CHOLESTYRAMINE 4 GM POWDER PO SCH ×2 (11:32→21:32)
[2020-09-04 13:00] VITALS: BP 114/71
[2020-09-04] MEDS: KETOROLAC TROMETH 30 MG/ML 1ML VIAL IV PRN (14:03)
[2020-09-04 17:00] VITALS: BP 120/80
[2020-09-04] MEDS: AMITRIPTYLINE HCL 25 MG TAB PO SCH (21:32)
[2020-09-04 22:09] VITALS: BP 111/73
[2020-09-05] MEDS: HYOSCYAMINE SULF 0.125 MG ODT TAB PO PRN (03:04)
[2020-09-05] MEDS: HYDROmorphone HCL 2 MG/ML VL IV PRN ×7 (03:05→22:55)
[2020-09-05 04:57] VITALS: BP 119/70
[2020-09-05] MEDS: metroNIDAZOLE 500MG/100ML 100 ML IV SCH ×3 (06:18→20:07)
[2020-09-05] MEDS: VANCOMYCIN HCL 500MG/5ML ORAL SOL PO SCH ×4 (06:19→20:22)
[2020-09-05] MEDS: ONDANSETRON HCL 4 MG/2 ML VIAL IV PRN ×2 (09:05→20:20)
[2020-09-05] MEDS: FLORASTOR (S. BOULARDII) 250 MG CAP PO SCH ×2 (09:31→20:22)
[2020-09-05] MEDS: GABAPENTIN 300 MG CAP PO SCH ×2 (09:31→20:08)
[2020-09-05] MEDS: POTASSIUM CHL 10 Meq TABLET PO SCH (09:36)
[2020-09-05] MEDS: CHOLESTYRAMINE 4 GM POWDER PO SCH ×2 (11:11→20:08)
[2020-09-05] MEDS: FUROSEMIDE 40 MG TAB PO SCH (11:53)
[2020-09-05 13:00] VITALS: BP 100/47
[2020-09-05 17:03] VITALS: BP 108/61
[2020-09-05] MEDS: AMITRIPTYLINE HCL 25 MG TAB PO SCH (20:09)
[2020-09-05 22:02] VITALS: BP 117/78
[2020-09-06] MEDS: HYDROmorphone HCL 2 MG/ML VL IV PRN ×7 (02:11→21:18)
[2020-09-06] MEDS: metroNIDAZOLE 500MG/100ML 100 ML IV SCH ×3 (05:12→22:00)
[2020-09-06] MEDS: VANCOMYCIN HCL 500MG/5ML ORAL SOL PO SCH ×4 (05:13→22:00)
[2020-09-06 05:15] VITALS: BP 109/52
[2020-09-06 06:27] LABS: Basophils # (auto) 0 10 ^3/uL (0-0.2); Basophils % (auto) 0.4 % (0.0-2.0); Eosinophils # (auto) 0.1 10 ^3/uL (0-0.8); Eosinophils % (auto) 2.1 % (0.0-7.0); Hematocrit 33.2 % (36.0-46.0); Hemoglobin 11.1 g/dL (12.2-16.2); Lymphocytes # (auto) 1.8 10 ^3/uL (0.4-5.4); Lymphocytes % (auto) 41.4 % (10.0-50.0); Mean Corpuscular Hemoglobin 28.9 pg (28.0-32.0); Mean Corpuscular Hgb Conc. 33.4 g/dL (32.0-36.0); Mean Corpuscular Volume 86.6 fL (80.0-100.0); Monocytes # (auto) 0.4 10 ^3/uL (0-1.3); Neutrophils % (auto) 46.1 % (37.0-80.0); Nucleated Red Blood Cells % 0.1 %; Platelet Count (auto) 389 10^3/uL (140-450); Red Blood Cells 3.83 10^6/uL (4.0-5.20); Red Cell Distribution Width 14.8 % (11.8-14.3); White Blood Cell 4.4 10^3/uL (4.4-10.8)
[2020-09-06 06:52] LABS: Potassium 4.2 mmol/L (3.5-5.1)
[2020-09-06 07:00] LABS: BUN/Creatinine Ratio 18.3; Bilirubin, Total 0.3 mg/dL (0.2-1.0); Calcium 8.5 mg/dL (8.5-10.1)
[2020-09-06] MEDS: POTASSIUM CHL 10 Meq TABLET PO SCH (08:09)
[2020-09-06] MEDS: GABAPENTIN 300 MG CAP PO SCH ×2 (08:10→22:00)
[2020-09-06] MEDS: FUROSEMIDE 40 MG TAB PO SCH (08:12)
[2020-09-06 08:40] VITALS: BP 103/67
[2020-09-06] MEDS: CHOLESTYRAMINE 4 GM POWDER PO SCH ×4 (10:21→23:33)
[2020-09-06] MEDS: FLORASTOR (S. BOULARDII) 250 MG CAP PO SCH ×2 (10:21→22:00)
[2020-09-06 13:00] VITALS: BP 134/68
[2020-09-06] MEDS: ONDANSETRON HCL 4 MG/2 ML VIAL IV PRN ×2 (15:12→20:31)
[2020-09-06 16:46] VITALS: BP 145/78
[2020-09-06] MEDS: SUCRALFATE 1 GM/10 ML ORAL SUSP PO SCH ×2 (17:02→22:00)
[2020-09-06] MEDS: HYOSCYAMINE SULF 0.125 MG ODT TAB PO PRN (20:05)
[2020-09-06] MEDS ORDERED: FURO1TAB33 GT (20:30)
[2020-09-06 22:00] VITALS: BP 113/71
[2020-09-06] MEDS: AMITRIPTYLINE HCL 25 MG TAB PO SCH (22:00)
[2020-09-07] MEDS: HYDROmorphone HCL 2 MG/ML VL IV PRN ×3 (03:45→09:32)
[2020-09-07 05:00] VITALS: BP 120/73
[2020-09-07] MEDS: CHOLESTYRAMINE 4 GM POWDER PO SCH ×4 (05:45→22:46)
[2020-09-07] MEDS: metroNIDAZOLE 500MG/100ML 100 ML IV SCH (06:00)
[2020-09-07] MEDS: VANCOMYCIN HCL 500MG/5ML ORAL SOL PO SCH ×4 (06:00→21:18)
[2020-09-07] MEDS: HYOSCYAMINE SULF 0.125 MG ODT TAB PO PRN ×2 (06:30→17:31)
[2020-09-07] MEDS: ONDANSETRON HCL 4 MG/2 ML VIAL IV PRN ×2 (06:30→21:20)
[2020-09-07] MEDS: SUCRALFATE 1 GM/10 ML ORAL SUSP PO SCH ×4 (06:55→21:18)
[2020-09-07 08:19] VITALS: BP 118/66
[2020-09-07] MEDS: GABAPENTIN 300 MG CAP PO SCH ×2 (09:32→21:20)
[2020-09-07] MEDS: FUROSEMIDE 40 MG TAB PO SCH (09:32)
[2020-09-07] MEDS: FLORASTOR (S. BOULARDII) 250 MG CAP PO SCH ×2 (09:32→21:19)
[2020-09-07] MEDS: POTASSIUM CHL 10 Meq TABLET PO SCH (09:32)
[2020-09-07] MEDS: HYDROmorphone HCL 2 MG TAB PO PRN ×3 (12:38→22:46)
[2020-09-07] MEDS: metroNIDAZOLE 500 MG TAB PO SCH ×2 (13:54→21:19)
[2020-09-07 14:04] VITALS: BP 118/86
[2020-09-07 16:25] VITALS: BP 126/65
[2020-09-07] MEDS: AMITRIPTYLINE HCL 25 MG TAB PO SCH (21:18)
[2020-09-07 22:00] VITALS: BP 148/79
[2020-09-08 05:00] VITALS: BP 149/91
[2020-09-08] MEDS: metroNIDAZOLE 500 MG TAB PO SCH ×4 (05:57→22:35)
[2020-09-08] MEDS: CHOLESTYRAMINE 4 GM POWDER PO SCH ×4 (05:57→23:20)
[2020-09-08] MEDS: VANCOMYCIN HCL 500MG/5ML ORAL SOL PO SCH ×4 (05:57→22:34)
[2020-09-08] MEDS: HYDROmorphone HCL 2 MG TAB PO PRN ×3 (05:58→16:18)
[2020-09-08] MEDS: SUCRALFATE 1 GM/10 ML ORAL SUSP PO SCH ×4 (05:59→22:34)
[2020-09-08] MEDS: ONDANSETRON HCL 4 MG/2 ML VIAL IV PRN (08:39)
[2020-09-08 09:09] VITALS: BP 147/82
[2020-09-08] MEDS: KETOROLAC TROMETH 30 MG/ML 1ML VIAL IV PRN ×2 (10:28→23:11)
[2020-09-08] MEDS: FUROSEMIDE 40 MG TAB PO SCH (10:30)
[2020-09-08] MEDS: GABAPENTIN 300 MG CAP PO SCH ×2 (10:31→22:34)
[2020-09-08] MEDS: POTASSIUM CHL 10 Meq TABLET PO SCH (10:31)
[2020-09-08] MEDS: FLORASTOR (S. BOULARDII) 250 MG CAP PO SCH ×2 (10:31→22:35)
[2020-09-08 13:00] VITALS: BP 131/67
[2020-09-08 16:50] VITALS: BP 162/88
[2020-09-08 22:00] VITALS: BP 100/73
[2020-09-08] MEDS: LORazepam 2MG/ML-1ML VIAL IV PRN (22:33)
[2020-09-08] MEDS: AMITRIPTYLINE HCL 25 MG TAB PO SCH (22:35)
[2020-09-08] MEDS: HYOSCYAMINE SULF 0.125 MG ODT TAB PO PRN (23:11)
[2020-09-09] MEDS: HYDROmorphone HCL 2 MG TAB PO PRN ×2 (00:10→12:26)
[2020-09-09 05:00] VITALS: BP 112/65
[2020-09-09] MEDS: CHOLESTYRAMINE 4 GM POWDER PO SCH ×2 (06:00→11:45)
[2020-09-09] MEDS: metroNIDAZOLE 500 MG TAB PO SCH ×2 (06:15→15:16)
[2020-09-09] MEDS: VANCOMYCIN HCL 500MG/5ML ORAL SOL PO SCH ×2 (06:15→12:25)
[2020-09-09] MEDS: LORazepam 2MG/ML-1ML VIAL IV PRN (06:30)
[2020-09-09] MEDS: SUCRALFATE 1 GM/10 ML ORAL SUSP PO SCH ×2 (06:43→12:24)
[2020-09-09] MEDS: KETOROLAC TROMETH 30 MG/ML 1ML VIAL IV PRN (06:44)
[2020-09-09 08:48] VITALS: BP 111/63
[2020-09-09] MEDS: ONDANSETRON HCL 4 MG/2 ML VIAL IV PRN (11:15)
[2020-09-09] MEDS: POTASSIUM CHL 10 Meq TABLET PO SCH (12:23)
[2020-09-09] MEDS: FLORASTOR (S. BOULARDII) 250 MG CAP PO SCH (12:23)
[2020-09-09] MEDS: FUROSEMIDE 40 MG TAB PO SCH (12:24)
[2020-09-09] MEDS: GABAPENTIN 300 MG CAP PO SCH (12:24)
[2020-09-09 13:00] VITALS: BP 113/52
[2020-09-09 16:39] VITALS: BP 114/67
== END 2020-09-09 17:55 | disposition home or self-care (01) | DRG 248 ==
LOC: EDBD 05:27 → ER 05:27 → EDUNIT# 05:27 → TELE 11:14 → TELE-WESTW 08-30 03:00 → TELE-CENTR 08-30 16:24 → CENTRAL 09-01 10:40
PROVIDERS: ADMIT Nurse Practitioner Acute Care; ATTEND Internal Medicine
PROC: 0S9C3ZZ Drainage of Right Knee Joint, Percutaneous Approach (ICD-10-PCS; principal; 2020-09-09)
DX: A04.72 Enterocolitis due to Clostridium difficile, not specified as recurrent (principal); N20.0 Calculus of kidney; E87.6 Hypokalemia; E66.01 Morbid (severe) obesity due to excess calories; Z68.41 Body mass index [BMI] 40.0-44.9, adult; F11.20 Opioid dependence, uncomplicated; E88.09 Other disorders of plasma-protein metabolism, not elsewhere classified; Z20.822 Contact with and (suspected) exposure to COVID-19; G89.29 Other chronic pain; F32.9 Major depressive disorder, single episode, unspecified; G43.909 Migraine, unspecified, not intractable, without status migrainosus; I10 Essential (primary) hypertension; M25.461 Effusion, right knee; R73.9 Hyperglycemia, unspecified; F39 Unspecified mood [affective] disorder; M54.5 Low back pain; F41.9 Anxiety disorder, unspecified; J45.909 Unspecified asthma, uncomplicated; Z80.3 Family history of malignant neoplasm of breast; Z82.49 Family history of ischemic heart disease and other diseases of the circulatory system; Z87.442 Personal history of urinary calculi; Z90.710 Acquired absence of both cervix and uterus; Z98.84 Bariatric surgery status; Z88.5 Allergy status to narcotic agent
CPT/HCPCS: 10022; 36415; 73700; 73721; 74176; 74177; 76705; 76942; 78226; 80048; 80053; 81001; 83036; 83605; 83690; 83735; 84443; 84702; 85025; 85610; 85730; 87040; 87045; 87070; 87086; 87205; 87426; 87427; 87493; 89051; 89060; G0378; J0696; J1885; J2001; J2405; J3480; J3490

== ENCOUNTER 2020-09-15 00:52 | Emergency (ER) | payer MEDICAID ==
[~2020-09-15] VITALS: Ht 170.2 cm; Wt 106.6 kg
[~2020-09-15 00:52] MED LIST: AMIT25TA12 PO; FURO1TAB33 GT; GABA100C PO
[2020-09-15] MEDS ORDERED: KETOROLAC TROMETH 30 MG/ML 1ML VIAL IV ONE (01:45)
[2020-09-15] MEDS ORDERED: SODIUM CHLORIDE 0.9% 1,000 ML IV ONE (01:45)
[2020-09-15] MEDS ORDERED: ONDANSETRON HCL 4 MG/2 ML VIAL IV ONE (02:00)
[2020-09-15 02:08] LABS: Basophils # (auto) 0.1 10 ^3/uL (0-0.2); Eosinophils # (auto) 0.1 10 ^3/uL (0-0.8); Lymphocytes # (auto) 1.5 10 ^3/uL (0.4-5.4); Mean Corpuscular Hemoglobin 29.2 pg (28.0-32.0); Monocytes # (auto) 0.7 10 ^3/uL (0-1.3); Neutrophils # (auto) 4.8 10 ^3/uL (1.6-8.6); White Blood Cell 7.2 10^3/uL (4.4-10.8)
[2020-09-15 02:09] LABS: Basophils % (auto) 0.8 % (0.0-2.0); Eosinophils % (auto) 1.7 % (0.0-7.0); Hemoglobin 10.1 g/dL (12.2-16.2); Lymphocytes % (auto) 20.4 % (10.0-50.0); Mean Corpuscular Hgb Conc. 33.7 g/dL (32.0-36.0); Mean Corpuscular Volume 86.5 fL (80.0-100.0); Monocytes % (auto) 9.7 % (0.0-12.0); Neutrophils % (auto) 67.4 % (37.0-80.0); Nucleated Red Blood Cells % 0.1 %; Red Blood Cells 3.47 10^6/uL (4.0-5.20); Red Cell Distribution Width 15.7 % (11.8-14.3)
[2020-09-15] MEDS ORDERED: LORazepam 2MG/ML-1ML VIAL ONE (02:12)
[2020-09-15] MEDS ORDERED: LORazepam 2MG/ML-1ML VIAL IV ONE (02:15)
[2020-09-15 02:26] LABS: Albumin 2.7 g/dL (3.4-5.0); BUN/Creatinine Ratio 19.2; Calcium 8.6 mg/dL (8.5-10.1); Potassium 3.2 mmol/L (3.5-5.1)
[2020-09-15 02:29] LABS: Bilirubin, Total 0.2 mg/dL (0.2-1.0); Total Protein 7.6 g/dL (6.4-8.2)
[2020-09-15 06:15] VITALS: BP 131/69
[2021-02-24] MEDS ORDERED: MIDO5TAB3 PO (11:30)
[2021-03-21] MEDS ORDERED: SUCR1TAB22 PO (15:54)
[2021-03-21] MEDS ORDERED: PANT40TA2 PO (15:54)
== END 2020-09-15 06:27 | disposition home or self-care (01) ==
LOC: ER 00:53
DX: M25.561 Pain in right knee (principal)
CPT/HCPCS: 36415; 80053; 83605; 85025; 96361; 96374; 96375; 99284; J1885; J2060; J2405; J7030

== ENCOUNTER 2020-10-26 10:13 | Emergency (ER) | payer MEDICAID ==
[~2020-10-26] VITALS: Ht 170.2 cm; Wt 100.2 kg
[~2020-10-26 10:13] MED LIST changes: -AMIT25TA12 PO; +AMIT25TA9 PO
[2020-10-26 13:14] VITALS: BP 151/84
== END 2020-10-26 13:25 | disposition home or self-care (01) ==
LOC: ER 10:13
DX: J02.9 Acute pharyngitis, unspecified (principal); I10 Essential (primary) hypertension; Z79.899 Other long term (current) drug therapy; Z88.6 Allergy status to analgesic agent
CPT/HCPCS: 71046; 87070; 87880

== ENCOUNTER 2020-12-17 07:38 | Emergency (ER) | payer MEDICAID ==
[~2020-12-17] VITALS: Ht 170.2 cm; Wt 98.4 kg
[2020-12-17 08:12] LABS: Basophils # (auto) 0 10 ^3/uL (0-0.2); Basophils % (auto) 0.5 % (0.0-2.0); Eosinophils # (auto) 0.1 10 ^3/uL (0-0.8); Eosinophils % (auto) 1.4 % (0.0-7.0); Hematocrit 32.7 % (36.0-46.0); Hemoglobin 10.7 g/dL (12.2-16.2); Lymphocytes % (auto) 14.9 % (10.0-50.0); Mean Corpuscular Hemoglobin 29.1 pg (28.0-32.0); Mean Corpuscular Hgb Conc. 32.9 g/dL (32.0-36.0); Mean Corpuscular Volume 88.6 fL (80.0-100.0); Monocytes # (auto) 0.3 10 ^3/uL (0-1.3); Monocytes % (auto) 5.2 % (0.0-12.0); Neutrophils # (auto) 5.1 10 ^3/uL (1.6-8.6); Platelet Count (auto) 246 10^3/uL (140-450); Red Blood Cells 3.69 10^6/uL (4.0-5.20); Red Cell Distribution Width 15.2 % (11.8-14.3); White Blood Cell 6.6 10^3/uL (4.4-10.8)
[2020-12-17 08:33] LABS: Alanine Aminotransferase 26 U/L (13-56); Albumin 3.2 g/dL (3.4-5.0); Anion Gap 4 (5-15); BUN/Creatinine Ratio 18.1; Blood Urea Nitrogen 13 mg/dL (7-18); Calcium 8.2 mg/dL (8.5-10.1); Carbon Dioxide 29 mmol/L (21-32); Chloride 105 mmol/L (98-107); GFR African American 111 mL/min; GFR Non-African American 92 mL/min; Glucose 120 mg/dL (74-106); Magnesium 2.7 mg/dL (1.6-2.6); Sodium 138 mmol/L (136-145)
[2020-12-17 08:39] LABS: Alkaline Phosphatase 81 U/L (45-117); Aspartate Aminotransferase 31 U/L (15-37); Bilirubin, Total 0.2 mg/dL (0.2-1.0); Total Protein 6.9 g/dL (6.4-8.2)
[2020-12-17] MEDS ORDERED: SODIUM CHLORIDE 0.9% 1,000 ML IV ONE (09:00)
[2020-12-17] MEDS ORDERED: KETOROLAC TROMETH 30 MG/ML 1ML VIAL IV ONE (09:00)
[2020-12-17] MEDS ORDERED: OXYCODONE W/ ACETAMINOPHEN 5/325MG TABLET PO ONE (09:00)
[2020-12-17 09:44] LABS: Urine Bacteria NONE SEEN /hpf (None Seen); Urine Blood 3+ /uL (Negative); Urine Mucus FEW (None Seen); Urine Specific Gravity 1.018 (1.001-1.035); Urine WBC 1 /hpf (0 - 5)
[2020-12-17 11:25] VITALS: BP 102/57
== END 2020-12-17 12:42 | disposition home or self-care (01) ==
LOC: ER 07:38
DX: G43.909 Migraine, unspecified, not intractable, without status migrainosus (principal); M79.604 Pain in right leg; R42 Dizziness and giddiness; I11.0 Hypertensive heart disease with heart failure; I50.9 Heart failure, unspecified; F41.9 Anxiety disorder, unspecified; F32.9 Major depressive disorder, single episode, unspecified; Z20.822 Contact with and (suspected) exposure to COVID-19; Z98.890 Other specified postprocedural states
CPT/HCPCS: 36415; 70450; 71045; 80053; 81001; 83735; 84484; 85025; 87426; 93005; 96361; 96374; 99285; J1885

== ENCOUNTER 2020-12-18 06:19 | Emergency (ER) | payer MEDICAID ==
[~2020-12-18] VITALS: Ht 170.2 cm; Wt 95.3 kg
[2020-12-18 06:20] VITALS: BP 121/66
[2020-12-18] MEDS ORDERED: KETOROLAC TROMETH 60MG/2ML VIAL IM ONE (08:00)
== END 2020-12-18 08:39 | disposition home or self-care (01) ==
LOC: ER 06:19
DX: G43.909 Migraine, unspecified, not intractable, without status migrainosus (principal); J20.9 Acute bronchitis, unspecified; F41.9 Anxiety disorder, unspecified; F32.9 Major depressive disorder, single episode, unspecified; Z98.890 Other specified postprocedural states
CPT/HCPCS: 96372; 99283; J1885

== ENCOUNTER 2020-12-25 14:31 | Emergency (ER) | payer MEDICAID ==
[~2020-12-25] VITALS: Ht 170.2 cm; Wt 94.8 kg
[2020-12-25] MEDS ORDERED: SODIUM CHLORIDE 0.9% 1,000 ML IV ONE ×3 (15:15→23:15)
[2020-12-25] MEDS ORDERED: ZINC SULFATE 220mg CAP or TAB PO ONE (15:15)
[2020-12-25] MEDS ORDERED: ASCORBIC ACID 500 MG TAB PO ONE (15:15)
[2020-12-25] MEDS ORDERED: ACETAMINOPHEN 500 MG TAB PO ONE (15:15)
[2020-12-25] MEDS ORDERED: CHOLECALCIFEROL (VITD3) 2,000 UNIT CAP/TAB PO ONE (15:15)
[2020-12-25 15:46] LABS: Basophils # (auto) 0 10 ^3/uL (0-0.2); Basophils % (auto) 0.3 % (0.0-2.0); Eosinophils # (auto) 0 10 ^3/uL (0-0.8); Eosinophils % (auto) 0.3 % (0.0-7.0); Hematocrit 37.9 % (36.0-46.0); Hemoglobin 12.7 g/dL (12.2-16.2); Lymphocytes # (auto) 0.6 10 ^3/uL (0.4-5.4); Lymphocytes % (auto) 11.6 % (10.0-50.0); Mean Corpuscular Hemoglobin 28.5 pg (28.0-32.0); Mean Corpuscular Hgb Conc. 33.4 g/dL (32.0-36.0); Mean Corpuscular Volume 85.3 fL (80.0-100.0); Monocytes # (auto) 0.4 10 ^3/uL (0-1.3); Monocytes % (auto) 6.9 % (0.0-12.0); Neutrophils # (auto) 4.4 10 ^3/uL (1.6-8.6); Neutrophils % (auto) 80.9 % (37.0-80.0); Platelet Count (auto) 349 10^3/uL (140-450); Red Blood Cells 4.44 10^6/uL (4.0-5.20); Red Cell Distribution Width 15.4 % (11.8-14.3); White Blood Cell 5.5 10^3/uL (4.4-10.8)
[2020-12-25 16:03] LABS: Albumin 3.8 g/dL (3.4-5.0); Calcium 8.6 mg/dL (8.5-10.1); Magnesium 2.4 mg/dL (1.6-2.6); Potassium 3.6 mmol/L (3.5-5.1)
[2020-12-25 16:08] LABS: BUN/Creatinine Ratio 13.3; Bilirubin, Total 0.7 mg/dL (0.2-1.0)
[2020-12-25 16:08] LABS: Urine Bacteria FEW /hpf (None Seen); Urine Blood Negative /uL (Negative); Urine Mucus FEW (None Seen); Urine Specific Gravity 1.016 (1.001-1.035); Urine WBC 2 /hpf (0 - 5)
[2020-12-26] MEDS ORDERED: SODIUM CHLORIDE 0.9% 500 ML IV ONE (02:15)
[2020-12-26] MEDS ORDERED: ACETAMINOPHEN 325 MG TAB PO ONE (04:45)
[2020-12-26 05:00] VITALS: BP 103/58
== END 2020-12-26 06:43 | disposition home or self-care (01) ==
LOC: ER 14:31
DX: R50.83 Postvaccination fever (principal); R06.02 Shortness of breath; M79.10 Myalgia, unspecified site; E87.6 Hypokalemia; F41.9 Anxiety disorder, unspecified; F32.9 Major depressive disorder, single episode, unspecified; I10 Essential (primary) hypertension; Z23 Encounter for immunization
CPT/HCPCS: 36415; 71046; 80053; 81001; 83735; 85025; 93005; 96360; 96361; 99285; J7030; J7040

== ENCOUNTER 2021-01-17 22:28 | Emergency (ER) | payer MEDICAID ==
[~2021-01-17] VITALS: Ht 170.2 cm; Wt 90.7 kg
[2021-01-17 23:20] LABS: Basophils # (auto) 0 10 ^3/uL (0-0.2); Basophils % (auto) 0.7 % (0.0-2.0); Eosinophils # (auto) 0.2 10 ^3/uL (0-0.8); Eosinophils % (auto) 3.9 % (0.0-7.0); Hematocrit 35.3 % (36.0-46.0); Hemoglobin 11.4 g/dL (12.2-16.2); Lymphocytes # (auto) 2.6 10 ^3/uL (0.4-5.4); Lymphocytes % (auto) 46.9 % (10.0-50.0); Mean Corpuscular Hemoglobin 27.8 pg (28.0-32.0); Mean Corpuscular Hgb Conc. 32.3 g/dL (32.0-36.0); Mean Corpuscular Volume 86.3 fL (80.0-100.0); Monocytes # (auto) 0.3 10 ^3/uL (0-1.3); Monocytes % (auto) 6.3 % (0.0-12.0); Neutrophils # (auto) 2.3 10 ^3/uL (1.6-8.6); Neutrophils % (auto) 42.2 % (37.0-80.0); Nucleated Red Blood Cells % 0.2 %; Red Blood Cells 4.09 10^6/uL (4.0-5.20); Red Cell Distribution Width 15.9 % (11.8-14.3); White Blood Cell 5.5 10^3/uL (4.4-10.8)
[2021-01-17 23:37] LABS: Albumin 3.4 g/dL (3.4-5.0); Calcium 7.9 mg/dL (8.5-10.1); Potassium 3.7 mmol/L (3.5-5.1)
[2021-01-17 23:41] LABS: BUN/Creatinine Ratio 17.6; Bilirubin, Total 0.3 mg/dL (0.2-1.0); Total Protein 7.2 g/dL (6.4-8.2)
[2021-01-18 01:25] LABS: Urine Bacteria NONE SEEN /hpf (None Seen); Urine Blood Negative /uL (Negative); Urine Hyaline Cast FEW /lpf (0 - 2); Urine Mucus MODERATE (None Seen); Urine Specific Gravity 1.025 (1.001-1.035); Urine WBC 5 /hpf (0 - 5)
[2021-01-18 02:17] VITALS: BP 102/62
[2021-01-18] MEDS ORDERED: SODIUM CHLORIDE 0.9% 1,000 ML IV ONE (02:30)
== END 2021-01-18 02:56 | disposition home or self-care (01) ==
LOC: ER 22:28
DX: N39.0 Urinary tract infection, site not specified (principal); R42 Dizziness and giddiness; I10 Essential (primary) hypertension; F41.9 Anxiety disorder, unspecified; F32.9 Major depressive disorder, single episode, unspecified; Z88.5 Allergy status to narcotic agent; Z79.899 Other long term (current) drug therapy; Z98.890 Other specified postprocedural states
CPT/HCPCS: 36415; 80053; 81001; 85025; 93005

== ENCOUNTER 2021-01-28 23:42 | Emergency (ER) | payer MEDICAID ==
[~2021-01-28] VITALS: Ht 170.2 cm; Wt 94.3 kg
[2021-01-29] MEDS ORDERED: ACCU-CHEK COMFORT CURVE STRIP VI ONE
[2021-01-29 00:50] LABS: Alanine Aminotransferase 23 U/L (13-56); Albumin 3.8 g/dL (3.4-5.0); Anion Gap 8 (5-15); Aspartate Aminotransferase 14 U/L (15-37); Blood Urea Nitrogen 26 mg/dL (7-18); Calcium 8.5 mg/dL (8.5-10.1); Carbon Dioxide 24 mmol/L (21-32); Chloride 107 mmol/L (98-107); GFR African American 82 mL/min; GFR Non-African American 68 mL/min; Glucose 93 mg/dL (74-106); Potassium 4.1 mmol/L (3.5-5.1); Sodium 139 mmol/L (136-145)
[2021-01-29 00:55] LABS: Alkaline Phosphatase 85 U/L (45-117); Bilirubin, Total 0.3 mg/dL (0.2-1.0); Total Protein 7.6 g/dL (6.4-8.2)
[2021-01-29 01:00] LABS: Basophils # (auto) 0.1 10 ^3/uL (0-0.2); Basophils % (auto) 0.7 % (0.0-2.0); Eosinophils # (auto) 0.1 10 ^3/uL (0-0.8); Eosinophils % (auto) 1.4 % (0.0-7.0); Hematocrit 35.4 % (36.0-46.0); Hemoglobin 11.8 g/dL (12.2-16.2); Lymphocytes # (auto) 2.3 10 ^3/uL (0.4-5.4); Lymphocytes % (auto) 32.5 % (10.0-50.0); Mean Corpuscular Hemoglobin 28.3 pg (28.0-32.0); Mean Corpuscular Hgb Conc. 33.4 g/dL (32.0-36.0); Mean Corpuscular Volume 84.9 fL (80.0-100.0); Monocytes # (auto) 0.5 10 ^3/uL (0-1.3); Neutrophils # (auto) 4.2 10 ^3/uL (1.6-8.6); Neutrophils % (auto) 58.4 % (37.0-80.0); Nucleated Red Blood Cells % 0.1 %; Red Blood Cells 4.17 10^6/uL (4.0-5.20); Red Cell Distribution Width 16.8 % (11.8-14.3); White Blood Cell 7.2 10^3/uL (4.4-10.8)
[2021-01-29 01:37] LABS: Urine Bacteria FEW /hpf (None Seen); Urine Blood Negative /uL (Negative); Urine Hyaline Cast MOD /lpf (0 - 2); Urine Mucus FEW (None Seen); Urine Specific Gravity 1.026 (1.001-1.035); Urine WBC 3 /hpf (0 - 5)
[2021-01-29] MEDS ORDERED: SODIUM CHLORIDE 0.9% 1,000 ML IV ONE ×3 (07:15→09:00)
[2021-01-29 15:15] VITALS: BP 113/59
== END 2021-01-29 15:44 | disposition home or self-care (01) ==
LOC: ER 23:42
DX: I95.9 Hypotension, unspecified (principal); R42 Dizziness and giddiness; Z79.899 Other long term (current) drug therapy; Z88.5 Allergy status to narcotic agent
CPT/HCPCS: 36415; 70450; 80053; 81001; 82962; 84484; 84702; 85025; 93005; 96360; 96361; 99285; J7030

== ENCOUNTER 2021-01-30 18:36 | Emergency (ER) | payer MEDICAID ==
[~2021-01-30] VITALS: Ht 170.2 cm; Wt 89.4 kg
[2021-01-31 00:56] LABS: Basophils # (auto) 0 10 ^3/uL (0-0.2); Basophils % (auto) 0.3 % (0.0-2.0); Eosinophils # (auto) 0.1 10 ^3/uL (0-0.8); Hematocrit 37.3 % (36.0-46.0); Hemoglobin 12.3 g/dL (12.2-16.2); Lymphocytes # (auto) 2.6 10 ^3/uL (0.4-5.4); Lymphocytes % (auto) 37.6 % (10.0-50.0); Mean Corpuscular Hemoglobin 28.3 pg (28.0-32.0); Mean Corpuscular Hgb Conc. 32.9 g/dL (32.0-36.0); Mean Corpuscular Volume 85.9 fL (80.0-100.0); Monocytes # (auto) 0.4 10 ^3/uL (0-1.3); Monocytes % (auto) 5.5 % (0.0-12.0); Neutrophils # (auto) 3.7 10 ^3/uL (1.6-8.6); Neutrophils % (auto) 54.6 % (37.0-80.0); Nucleated Red Blood Cells % 0.4 %; Red Blood Cells 4.34 10^6/uL (4.0-5.20); White Blood Cell 6.8 10^3/uL (4.4-10.8)
[2021-01-31 01:16] LABS: Alanine Aminotransferase 19 U/L (13-56); Albumin 3.3 g/dL (3.4-5.0); Anion Gap 4 (5-15); Aspartate Aminotransferase 37 U/L (15-37); BUN/Creatinine Ratio 23.6; Blood Urea Nitrogen 17 mg/dL (7-18); Carbon Dioxide 25 mmol/L (21-32); Chloride 108 mmol/L (98-107); GFR African American 111 mL/min; GFR Non-African American 92 mL/min; Glucose 105 mg/dL (74-106); Magnesium 2.2 mg/dL (1.6-2.6); Potassium 3.9 mmol/L (3.5-5.1); Sodium 137 mmol/L (136-145)
[2021-01-31 01:21] LABS: Alkaline Phosphatase 82 U/L (45-117); Bilirubin, Total 0.4 mg/dL (0.2-1.0); Total Protein 7.3 g/dL (6.4-8.2)
[2021-01-31 04:20] VITALS: BP 98/52
== END 2021-01-31 04:22 | disposition home or self-care (01) ==
LOC: ER 18:37
DX: I95.9 Hypotension, unspecified (principal); R42 Dizziness and giddiness; F41.9 Anxiety disorder, unspecified; F32.9 Major depressive disorder, single episode, unspecified; Z98.890 Other specified postprocedural states; Z88.5 Allergy status to narcotic agent; Z79.899 Other long term (current) drug therapy
CPT/HCPCS: 36415; 71045; 80053; 83605; 83735; 83880; 84484; 85025

== ENCOUNTER 2021-02-06 22:06 | Emergency (ER) | payer MEDICAID ==
[~2021-02-06] VITALS: Ht 170.2 cm; Wt 87.5 kg
[2021-02-06 23:00] LABS: Hemoglobin 13.1 g/dL (12.2-16.2); Mean Corpuscular Hemoglobin 27.9 pg (28.0-32.0); Mean Corpuscular Hgb Conc. 32.7 g/dL (32.0-36.0); Mean Corpuscular Volume 85.3 fL (80.0-100.0); Red Blood Cells 4.69 10^6/uL (4.0-5.20); Red Cell Distribution Width 16.7 % (11.8-14.3)
[2021-02-06 23:03] LABS: Basophils % (manual) 0 (0.0-2.0); Blast Cells 0; Metamyelocytes % 0; Myelocytes % 0; Promyelocytes % 0; Reactive Lymphocytes 0
[2021-02-06 23:15] LABS: Alanine Aminotransferase 22 U/L (13-56); Albumin 3.9 g/dL (3.4-5.0); Anion Gap 6 (5-15); Aspartate Aminotransferase 19 U/L (15-37); BUN/Creatinine Ratio 16.5; Blood Urea Nitrogen 19 mg/dL (7-18); Calcium 8.6 mg/dL (8.5-10.1); Carbon Dioxide 26 mmol/L (21-32); Chloride 105 mmol/L (98-107); GFR African American 64 mL/min; GFR Non-African American 53 mL/min; Glucose 94 mg/dL (74-106); Sodium 137 mmol/L (136-145)
[2021-02-06] MEDS ORDERED: SODIUM CHLORIDE 0.9% 1,000 ML IV ONE (23:15)
[2021-02-06 23:18] LABS: Alkaline Phosphatase 79 U/L (45-117); Bilirubin, Total 0.9 mg/dL (0.2-1.0); Total Protein 7.8 g/dL (6.4-8.2)
[2021-02-06 23:36] LABS: Band Neutrophils % (manual) 6; Eosinophils % (manual) 3 (0-7); Lymphocytes % (manual) 32 (10.0-50.0); Monocytes % (manual) 9 (0-12)
[2021-02-06] MEDS ORDERED: IOHEXOL 300 MG/ML 100ML BOTTLE IJ ONE (23:47)
[2021-02-07] MEDS ORDERED: SODIUM CHLORIDE 0.9% 1,000 ML IV ONE (02:45)
[2021-02-07 05:37] VITALS: BP 102/60
== END 2021-02-07 06:10 | disposition home or self-care (01) ==
LOC: ER 22:08
DX: I95.1 Orthostatic hypotension (principal); E86.0 Dehydration; F41.9 Anxiety disorder, unspecified; F32.9 Major depressive disorder, single episode, unspecified; Z88.5 Allergy status to narcotic agent; Z79.899 Other long term (current) drug therapy; Z98.890 Other specified postprocedural states
CPT/HCPCS: 36415; 71045; 74177; 80053; 83605; 84484; 85007; 85027; 85379; 96360; 96361; 99285; Q9967

== ENCOUNTER 2021-02-13 14:46 | Inpatient (IN) | payer MEDICAID ==
[~2021-02-13] VITALS: Ht 170.2 cm; Wt 100.1 kg
[2021-02-13] MEDS ORDERED: ACCU-CHEK COMFORT CURVE STRIP VI ONE (15:00)
[2021-02-13] MEDS ORDERED: SODIUM CHLORIDE 0.9% 1,000 ML IV ONE (15:15)
[2021-02-13 17:01] LABS: Basophils # (auto) 0 10 ^3/uL (0-0.2); Basophils % (auto) 0.3 % (0.0-2.0); Eosinophils # (auto) 0.1 10 ^3/uL (0-0.8); Eosinophils % (auto) 1.6 % (0.0-7.0); Hematocrit 36.2 % (36.0-46.0); Hemoglobin 11.8 g/dL (12.2-16.2); Lymphocytes # (auto) 2.3 10 ^3/uL (0.4-5.4); Lymphocytes % (auto) 35.7 % (10.0-50.0); Mean Corpuscular Hgb Conc. 32.5 g/dL (32.0-36.0); Mean Corpuscular Volume 85.9 fL (80.0-100.0); Monocytes # (auto) 0.5 10 ^3/uL (0-1.3); Monocytes % (auto) 7.5 % (0.0-12.0); Neutrophils # (auto) 3.5 10 ^3/uL (1.6-8.6); Neutrophils % (auto) 54.9 % (37.0-80.0); Red Blood Cells 4.22 10^6/uL (4.0-5.20); Red Cell Distribution Width 17.3 % (11.8-14.3); White Blood Cell 6.4 10^3/uL (4.4-10.8)
[2021-02-13 17:13] LABS: Albumin 3.3 g/dL (3.4-5.0); Calcium 8.4 mg/dL (8.5-10.1); Potassium 4.3 mmol/L (3.5-5.1)
[2021-02-13] MEDS ORDERED: IBUPROFEN 600 MG TAB PO ONE (17:15)
[2021-02-13 17:16] LABS: BUN/Creatinine Ratio 15.4; Bilirubin, Total 0.4 mg/dL (0.2-1.0); Total Protein 7.2 g/dL (6.4-8.2)
[2021-02-13 17:26] LABS: Lipase 67 U/L (73-393)
[2021-02-13 18:58] LABS: Urine Bacteria FEW /hpf (None Seen); Urine Blood Negative /uL (Negative); Urine Hyaline Cast FEW /lpf (0 - 2); Urine Mucus FEW (None Seen); Urine Specific Gravity 1.024 (1.001-1.035); Urine WBC 7 /hpf (0 - 5)
[2021-02-13] MEDS ORDERED: MORPHINE SULF INJ 2 MG/ML SYRINGE 1ML IV PRN (22:00)
[2021-02-13] MEDS ORDERED: ONDANSETRON HCL 4 MG/2 ML VIAL IV PRN (22:00)
[2021-02-13] MEDS ORDERED: ACETAMINOPHEN 325 MG TAB PO PRN (22:00)
[2021-02-13] MEDS ORDERED: NITROGLYCERIN 0.4 MG SL TAB SL PRN (22:00)
[2021-02-13] MEDS ORDERED: DOCUSATE SOD 100 MG CAP PO PRN (22:00)
[2021-02-13] MEDS: FAMOTIDINE (10MG/ML) 2ML VL IV SCH (22:40)
[2021-02-13] MEDS: SODIUM CHLOR 0.9% PF (SALINE LOCK) 10ML VIAL/SYR IV SCH (22:41)
[2021-02-13] MEDS: ASCORBIC ACID 500 MG TAB PO SCH (22:41)
[2021-02-13] MEDS: HYDROcodone-ACET 5/325MG TAB PO PRN (22:44)
[2021-02-13 23:22] VITALS: BP 92/49
[2021-02-14] VITALS (8 sets, daily range): BP systolic 92–144; BP diastolic 49–75
[2021-02-14] MEDS ORDERED: ALBUTEROL SULF HFA 90MCG INH 200DOSE IN PRN (00:30)
[2021-02-14] MEDS ORDERED: FURO1TAB33 PO (00:40)
[2021-02-14] MEDS ORDERED: QUET50TA PO (00:40)
[2021-02-14] MEDS ORDERED: GABA300C10 PO (00:40)
[2021-02-14] MEDS ORDERED: BUSP10TA31 PO (00:40)
[2021-02-14] MEDS ORDERED: ALBU108A5 IN (00:41)
[2021-02-14] MEDS ORDERED: ALBUTEROL SULF 2.5 MG/0.5ML(0.5%) NEB SOLN NEB PRN (03:15)
[2021-02-14] MEDS: GABAPENTIN 100 MG CAP PO SCH ×3 (05:30→21:37)
[2021-02-14] MEDS: SODIUM CHLOR 0.9% PF (SALINE LOCK) 10ML VIAL/SYR IV SCH ×3 (05:30→21:37)
[2021-02-14] MEDS: busPIRone HCL 10 MG TAB PO SCH ×3 (05:30→21:37)
[2021-02-14] MEDS ORDERED: SODIUM CHLORIDE 0.9% 500 ML IV ONE (05:45)
[2021-02-14 05:55] LABS: Basophils # (auto) 0 10 ^3/uL (0-0.2); Basophils % (auto) 0.7 % (0.0-2.0); Eosinophils # (auto) 0.1 10 ^3/uL (0-0.8); Eosinophils % (auto) 2.6 % (0.0-7.0); Hematocrit 33.7 % (36.0-46.0); Hemoglobin 11.2 g/dL (12.2-16.2); Lymphocytes # (auto) 2.4 10 ^3/uL (0.4-5.4); Lymphocytes % (auto) 45.7 % (10.0-50.0); Mean Corpuscular Hemoglobin 28.8 pg (28.0-32.0); Mean Corpuscular Hgb Conc. 33.3 g/dL (32.0-36.0); Mean Corpuscular Volume 86.5 fL (80.0-100.0); Monocytes # (auto) 0.4 10 ^3/uL (0-1.3); Monocytes % (auto) 7.2 % (0.0-12.0); Neutrophils # (auto) 2.3 10 ^3/uL (1.6-8.6); Neutrophils % (auto) 43.8 % (37.0-80.0); Nucleated Red Blood Cells % 0.1 %; Red Blood Cells 3.89 10^6/uL (4.0-5.20); Red Cell Distribution Width 17.3 % (11.8-14.3); White Blood Cell 5.3 10^3/uL (4.4-10.8)
[2021-02-14 06:48] LABS: Albumin 2.7 g/dL (3.4-5.0); Calcium 8.5 mg/dL (8.5-10.1); Potassium 4.1 mmol/L (3.5-5.1)
[2021-02-14 06:52] LABS: BUN/Creatinine Ratio 20.8; Bilirubin, Total 0.3 mg/dL (0.2-1.0); Total Protein 6.1 g/dL (6.4-8.2)
[2021-02-14] MEDS: cefTRIAXone 1GM/50ML D5W 50 ML IV SCH (08:29)
[2021-02-14] MEDS: ASPirin 81 mg TAB PO SCH (10:05)
[2021-02-14] MEDS: ASCORBIC ACID 500 MG TAB PO SCH ×2 (10:05→21:38)
[2021-02-14] MEDS: ENOXAPARIN SOD 40 MG/0.4 ML SYRINGE SC SCH (10:05)
[2021-02-14] MEDS: FAMOTIDINE (10MG/ML) 2ML VL IV SCH ×2 (10:05→21:36)
[2021-02-14] MEDS: ZINC SULFATE 220mg CAP or TAB PO SCH (10:05)
[2021-02-14] MEDS: MULTIPLE VITAMIN TAB PO SCH (10:05)
[2021-02-14] MEDS: HYDROcodone-ACET 5/325MG TAB PO PRN (11:49)
[2021-02-14 12:08] LABS: Alcohol, Urine < 3.0 mg/dL (0-10); Amphetamine Screen, Urine NEGATIVE (NEGATIVE); Barbiturate Scree,Urine NEGATIVE (NEGATIVE); Benzodiazephine Screen, Urine NEGATIVE (NEGATIVE); Cannabinoid Screen, Urine NEGATIVE (NEGATIVE); Cocaine Screen, Urine NEGATIVE (NEGATIVE); Opiate Scree,Urine NEGATIVE (NEGATIVE); Phencyclidine Screen, Urine NEGATIVE (NEGATIVE)
[2021-02-14] MEDS: SODIUM CHLORIDE 0.9% 1,000 ML IV SCH (15:36)
[2021-02-14] MEDS ORDERED: IOHEXOL 300 MG/ML 100ML BOTTLE IJ ONE (18:12)
[2021-02-14] MEDS: HYDROmorphone HCL 2 MG/ML VL IV PRN ×2 (18:17→23:25)
[2021-02-14] MEDS ORDERED: LORazepam 2MG/ML-1ML VIAL IV PRN ×2 (22:15)
[2021-02-15] MEDS: HYDROmorphone HCL 2 MG/ML VL IV PRN ×2 (04:04→08:24)
[2021-02-15 05:00] VITALS: BP 108/76
[2021-02-15 05:26] LABS: Basophils # (auto) 0 10 ^3/uL (0-0.2); Basophils % (auto) 0.7 % (0.0-2.0); Eosinophils # (auto) 0.1 10 ^3/uL (0-0.8); Hemoglobin 11.7 g/dL (12.2-16.2); Lymphocytes # (auto) 1.8 10 ^3/uL (0.4-5.4); Lymphocytes % (auto) 33.7 % (10.0-50.0); Mean Corpuscular Hemoglobin 28.7 pg (28.0-32.0); Mean Corpuscular Hgb Conc. 33.5 g/dL (32.0-36.0); Mean Corpuscular Volume 85.7 fL (80.0-100.0); Monocytes # (auto) 0.4 10 ^3/uL (0-1.3); Monocytes % (auto) 8.1 % (0.0-12.0); Neutrophils % (auto) 55.5 % (37.0-80.0); Nucleated Red Blood Cells % 0.1 %; Red Blood Cells 4.08 10^6/uL (4.0-5.20); Red Cell Distribution Width 17.5 % (11.8-14.3); White Blood Cell 5.4 10^3/uL (4.4-10.8)
[2021-02-15 05:43] LABS: Calcium 8.3 mg/dL (8.5-10.1); Magnesium 2.4 mg/dL (1.6-2.6); Potassium 4.2 mmol/L (3.5-5.1)
[2021-02-15 05:46] LABS: BUN/Creatinine Ratio 19.1
[2021-02-15] MEDS: SODIUM CHLOR 0.9% PF (SALINE LOCK) 10ML VIAL/SYR IV SCH ×2 (06:33→13:57)
[2021-02-15] MEDS: busPIRone HCL 10 MG TAB PO SCH ×2 (06:33→13:57)
[2021-02-15] MEDS: GABAPENTIN 100 MG CAP PO SCH ×2 (06:34→13:57)
[2021-02-15] MEDS: SODIUM CHLORIDE 0.9% 1,000 ML IV SCH (07:40)
[2021-02-15] MEDS: cefTRIAXone 1GM/50ML D5W 50 ML IV SCH (08:24)
[2021-02-15 08:25] VITALS: BP 119/87
[2021-02-15 08:38] VITALS: BP 119/87
[2021-02-15] MEDS: ASCORBIC ACID 500 MG TAB PO SCH (09:29)
[2021-02-15] MEDS: ZINC SULFATE 220mg CAP or TAB PO SCH (09:29)
[2021-02-15] MEDS: MULTIPLE VITAMIN TAB PO SCH (09:29)
[2021-02-15] MEDS: ASPirin 81 mg TAB PO SCH (09:29)
[2021-02-15] MEDS: FAMOTIDINE (10MG/ML) 2ML VL IV SCH (09:30)
[2021-02-15] MEDS: ENOXAPARIN SOD 40 MG/0.4 ML SYRINGE SC SCH (09:31)
[2021-02-15 12:39] VITALS: BP 116/71
[2021-02-15 16:25] VITALS: BP 128/78
[2021-02-15 16:28] VITALS: BP 128/78
== END 2021-02-15 17:25 | disposition home health service (06) | DRG 207 ==
LOC: ER 14:46 → TELE 21:52 → TELE-CENTR 23:23
PROVIDERS: ADMIT Nurse Practitioner Family; ATTEND Internal Medicine
DX: I95.2 Hypotension due to drugs (principal); N17.0 Acute kidney failure with tubular necrosis; E88.09 Other disorders of plasma-protein metabolism, not elsewhere classified; F11.20 Opioid dependence, uncomplicated; K59.00 Constipation, unspecified; I10 Essential (primary) hypertension; E66.9 Obesity, unspecified; F17.200 Nicotine dependence, unspecified, uncomplicated; F32.9 Major depressive disorder, single episode, unspecified; F41.0 Panic disorder [episodic paroxysmal anxiety]; F60.9 Personality disorder, unspecified; G89.4 Chronic pain syndrome; J45.909 Unspecified asthma, uncomplicated; T44.5X5A Adverse effect of predominantly beta-adrenoreceptor agonists, initial encounter; T50.1X5A Adverse effect of loop [high-ceiling] diuretics, initial encounter; F41.9 Anxiety disorder, unspecified; Z20.822 Contact with and (suspected) exposure to COVID-19; Z98.1 Arthrodesis status; Z98.51 Tubal ligation status; Z88.6 Allergy status to analgesic agent; Z68.32 Body mass index [BMI] 32.0-32.9, adult; Z80.3 Family history of malignant neoplasm of breast; Z82.49 Family history of ischemic heart disease and other diseases of the circulatory system; Z83.3 Family history of diabetes mellitus
CPT/HCPCS: 36415; 70551; 71045; 74178; 80048; 80053; 80061; 80307; 81001; 81025; 82306; 83690; 83735; 84443; 84484; 85025; 87086; 87426; 87493; 93005; 93306; 93886; 96361; 96365; 96372; G0378; J0696; J2405; J3490

== ENCOUNTER 2021-02-22 14:23 | Inpatient (IN) | payer MEDICAID ==
[~2021-02-22] VITALS: Ht 170.2 cm; Wt 100.4 kg
[~2021-02-22 14:23] MED LIST changes: +ALBU108A5 IN; +AMIT25TA12 PO; -AMIT25TA9 PO; +BUSP10TA31 PO; -FURO1TAB33 GT; -GABA100C PO; +GABA300C10 PO; +QUET50TA PO
[2021-02-22] MEDS ORDERED: SODIUM CHLORIDE 0.9% 1,000 ML IV ONE ×2 (14:45)
[2021-02-22 15:19] LABS: Basophils # (auto) 0 10 ^3/uL (0-0.2); Basophils % (auto) 0.5 % (0.0-2.0); Eosinophils # (auto) 0.1 10 ^3/uL (0-0.8); Eosinophils % (auto) 1.5 % (0.0-7.0); Hematocrit 36.9 % (36.0-46.0); Hemoglobin 12.2 g/dL (12.2-16.2); Lymphocytes # (auto) 1.9 10 ^3/uL (0.4-5.4); Lymphocytes % (auto) 34.1 % (10.0-50.0); Mean Corpuscular Hemoglobin 28.8 pg (28.0-32.0); Mean Corpuscular Hgb Conc. 33.1 g/dL (32.0-36.0); Mean Corpuscular Volume 87.2 fL (80.0-100.0); Monocytes # (auto) 0.3 10 ^3/uL (0-1.3); Neutrophils # (auto) 3.2 10 ^3/uL (1.6-8.6); Neutrophils % (auto) 57.9 % (37.0-80.0); Red Blood Cells 4.23 10^6/uL (4.0-5.20); Red Cell Distribution Width 17.8 % (11.8-14.3); White Blood Cell 5.5 10^3/uL (4.4-10.8)
[2021-02-22 15:41] LABS: Albumin 3.5 g/dL (3.4-5.0); Anion Gap 6 (5-15); Blood Urea Nitrogen 18 mg/dL (7-18); Calcium 8.5 mg/dL (8.5-10.1); Carbon Dioxide 27 mmol/L (21-32); Chloride 106 mmol/L (98-107); Glucose 95 mg/dL (74-106); Potassium 3.6 mmol/L (3.5-5.1); Sodium 139 mmol/L (136-145)
[2021-02-22 15:43] LABS: Alanine Aminotransferase 24 U/L (13-56); Aspartate Aminotransferase 17 U/L (15-37); BUN/Creatinine Ratio 24.3; GFR African American 107 mL/min; GFR Non-African American 89 mL/min
[2021-02-22 15:48] LABS: Alkaline Phosphatase 80 U/L (45-117); Bilirubin, Total 0.3 mg/dL (0.2-1.0); Total Protein 7.6 g/dL (6.4-8.2)
[2021-02-22] MEDS ORDERED: NITROGLYCERIN 0.4 MG SL TAB SL PRN (18:30)
[2021-02-22] MEDS ORDERED: MORPHINE SULFATE INJECTION 2 MG/ML SYRG IV PRN (18:30)
[2021-02-22] MEDS: SODIUM CHLORIDE 0.9% 1,000 ML IV SCH (18:54)
[2021-02-22] MEDS ORDERED: HYDROmorphone HCL 2 MG/ML VL IV PRN (21:45)
[2021-02-22] MEDS ORDERED: AMITRIPTYLINE HCL 25 MG TAB PO SCH (22:00)
[2021-02-22] MEDS: ONDANSETRON HCL 4 MG/2 ML VIAL IV PRN (22:16)
[2021-02-22] MEDS: busPIRone HCL 10 MG TAB PO SCH (22:28)
[2021-02-22] MEDS: GABAPENTIN 300 MG CAP PO SCH (22:28)
[2021-02-22] MEDS: QUEtiapine FUMARATE 100 MG TAB PO SCH (22:28)
[2021-02-22 23:15] VITALS: BP 111/80
[2021-02-23 00:59] LABS: Urine Bacteria FEW /hpf (None Seen); Urine Blood Negative /uL (Negative); Urine Hyaline Cast FEW /lpf (0 - 2); Urine Mucus FEW (None Seen); Urine Specific Gravity 1.014 (1.001-1.035); Urine WBC 1 /hpf (0 - 5)
[2021-02-23] MEDS: ACETAMINOPHEN/CODEINE#3 (300/30mg) TAB PO PRN ×3 (01:00→19:22)
[2021-02-23] MEDS ORDERED: TOPI50TA32 PO (03:50)
[2021-02-23] MEDS ORDERED: ONDA-144 PO (03:50)
[2021-02-23] MEDS ORDERED: OXYC15TA77 PO (03:50)
[2021-02-23 04:51] VITALS: BP 89/45
[2021-02-23] MEDS: SODIUM CHLORIDE 0.9% 1,000 ML IV SCH ×2 (05:10→13:22)
[2021-02-23] MEDS: GABAPENTIN 300 MG CAP PO SCH ×3 (05:42→21:49)
[2021-02-23] MEDS: busPIRone HCL 10 MG TAB PO SCH ×3 (05:42→21:49)
[2021-02-23] MEDS: PANTOPRAZOLE 40 MG TAB PO SCH (08:33)
[2021-02-23 09:00] VITALS: BP 111/70
[2021-02-23] MEDS: MIDODRINE HCL 10 MG TAB PO SCH ×2 (11:47→18:05)
[2021-02-23 12:24] LABS: Alcohol, Urine < 3.0 mg/dL (0-10); Amphetamine Screen, Urine NEGATIVE (NEGATIVE); Barbiturate Scree,Urine NEGATIVE (NEGATIVE); Benzodiazephine Screen, Urine NEGATIVE (NEGATIVE); Cannabinoid Screen, Urine NEGATIVE (NEGATIVE); Cocaine Screen, Urine NEGATIVE (NEGATIVE); Opiate Scree,Urine NEGATIVE (NEGATIVE); Phencyclidine Screen, Urine NEGATIVE (NEGATIVE)
[2021-02-23 13:02] VITALS: BP 115/70
[2021-02-23] MEDS: LACTULOSE 20Gm/30ML SOLN PO PRN (13:20)
[2021-02-23] MEDS: DOCUSATE SOD 100 MG CAP PO PRN (13:21)
[2021-02-23 17:00] VITALS: BP 112/41
[2021-02-23] MEDS ORDERED: SODIUM CHLORIDE 0.9% 1,000 ML IV SCH (17:00)
[2021-02-23] MEDS: ONDANSETRON HCL 4 MG/2 ML VIAL IV PRN (19:27)
[2021-02-23 20:00] VITALS: BP 128/70
[2021-02-23] MEDS: QUEtiapine FUMARATE 100 MG TAB PO SCH (21:49)
[2021-02-23 22:00] VITALS: BP 128/70
[2021-02-24] MEDS: LACTULOSE 20Gm/30ML SOLN PO PRN (03:47)
[2021-02-24] MEDS: DOCUSATE SOD 100 MG CAP PO PRN (03:47)
[2021-02-24] MEDS: ACETAMINOPHEN/CODEINE#3 (300/30mg) TAB PO PRN ×2 (03:48→09:48)
[2021-02-24 05:00] VITALS: BP 149/77
[2021-02-24] MEDS: GABAPENTIN 300 MG CAP PO SCH ×2 (05:50→13:41)
[2021-02-24] MEDS: MIDODRINE HCL 10 MG TAB PO SCH ×2 (05:51→12:03)
[2021-02-24] MEDS: busPIRone HCL 10 MG TAB PO SCH ×2 (05:51→13:41)
[2021-02-24 09:00] VITALS: BP 139/88
[2021-02-24] MEDS: PANTOPRAZOLE 40 MG TAB PO SCH (09:45)
[2021-02-24] MEDS ORDERED: MIDO5TAB3 PO (11:30)
[2021-02-24 13:00] VITALS: BP 119/73
[2021-02-24 13:50] VITALS: BP 119/73
== END 2021-02-24 15:15 | disposition home or self-care (01) | DRG 48 ==
LOC: ER 14:23 → TELE 18:29 → TELE-WESTW 22:50
PROVIDERS: ADMIT Nurse Practitioner Acute Care; ATTEND Internal Medicine
DX: G90.9 Disorder of the autonomic nervous system, unspecified (principal); E88.09 Other disorders of plasma-protein metabolism, not elsewhere classified; E66.9 Obesity, unspecified; F39 Unspecified mood [affective] disorder; F41.9 Anxiety disorder, unspecified; Z20.822 Contact with and (suspected) exposure to COVID-19; I10 Essential (primary) hypertension; F32.9 Major depressive disorder, single episode, unspecified; M19.90 Unspecified osteoarthritis, unspecified site; F11.20 Opioid dependence, uncomplicated; G89.29 Other chronic pain; Z80.3 Family history of malignant neoplasm of breast; Z82.49 Family history of ischemic heart disease and other diseases of the circulatory system; Z83.3 Family history of diabetes mellitus; Z98.84 Bariatric surgery status; Z79.899 Other long term (current) drug therapy; Z68.34 Body mass index [BMI] 34.0-34.9, adult; Z98.51 Tubal ligation status
CPT/HCPCS: 36415; 71045; 80053; 80307; 81001; 84484; 85025; 85652; 87081; 87426; 93005; 96360; 96361; G0378; J2405

== ENCOUNTER 2021-03-05 10:20 | Emergency (ER) | payer MEDICAID ==
[~2021-03-05] VITALS: Ht 170.2 cm; Wt 88.9 kg
[~2021-03-05 10:20] MED LIST changes: -AMIT25TA12 PO; +AMIT25TA9 PO; +MIDO5TAB2 PO; +ONDA-144 PO; +OXYC15TA77 PO; +TOPI50TA32 PO
[2021-03-05 11:03] LABS: Basophils # (auto) 0 10 ^3/uL (0-0.2); Basophils % (auto) 0.7 % (0.0-2.0); Eosinophils # (auto) 0.1 10 ^3/uL (0-0.8); Eosinophils % (auto) 1.5 % (0.0-7.0); Hematocrit 38.5 % (36.0-46.0); Hemoglobin 12.7 g/dL (12.2-16.2); Lymphocytes # (auto) 1.5 10 ^3/uL (0.4-5.4); Lymphocytes % (auto) 26.4 % (10.0-50.0); Mean Corpuscular Hemoglobin 28.6 pg (28.0-32.0); Mean Corpuscular Volume 86.5 fL (80.0-100.0); Monocytes # (auto) 0.2 10 ^3/uL (0-1.3); Monocytes % (auto) 4.4 % (0.0-12.0); Neutrophils # (auto) 3.7 10 ^3/uL (1.6-8.6); Red Blood Cells 4.46 10^6/uL (4.0-5.20); Red Cell Distribution Width 17.7 % (11.8-14.3); White Blood Cell 5.6 10^3/uL (4.4-10.8)
[2021-03-05 11:05] LABS: Urine Bacteria FEW /hpf (None Seen); Urine Blood 2+ /uL (Negative); Urine Mucus FEW (None Seen); Urine Specific Gravity 1.022 (1.001-1.035); Urine WBC 161 /hpf (0 - 5)
[2021-03-05 11:22] LABS: Albumin 3.5 g/dL (3.4-5.0); Potassium 4.1 mmol/L (3.5-5.1)
[2021-03-05 11:25] LABS: BUN/Creatinine Ratio 17.7; Bilirubin, Total 0.8 mg/dL (0.2-1.0); Total Protein 7.6 g/dL (6.4-8.2)
[2021-03-05] MEDS ORDERED: cefTRIAXone 1GM/50ML D5W 50 ML IV ONE (13:15)
[2021-03-05] MEDS ORDERED: SODIUM CHLORIDE 0.9% 1,000 ML IV ONE (13:15)
[2021-03-05] MEDS ORDERED: ONDANSETRON HCL 4 MG/2 ML VIAL IV ONE (13:30)
[2021-03-05] MEDS ORDERED: PANTOPRAZOLE 40 MG/10 ML VIAL INJ IV ONE (13:30)
[2021-03-05] MEDS ORDERED: KETOROLAC TROMETH 30 MG/ML 1ML VIAL IV ONE (14:30)
[2021-03-05 15:55] VITALS: BP 140/94
[2021-03-21] MEDS ORDERED: PANT40TA2 PO (15:54)
[2021-03-21] MEDS ORDERED: SUCR1TAB22 PO (15:54)
== END 2021-03-05 16:04 | disposition home or self-care (01) ==
LOC: ER 10:20
DX: N39.0 Urinary tract infection, site not specified (principal); R11.0 Nausea; Z79.899 Other long term (current) drug therapy; Z88.5 Allergy status to narcotic agent
CPT/HCPCS: 36415; 74176; 80053; 81001; 85025; 96365; 96375; 99284; C9113; J0696; J1885; J2405; J7030

== ENCOUNTER 2021-03-06 10:34 | Emergency (ER) | payer MEDICAID ==
[~2021-03-06] VITALS: Ht 170.2 cm; Wt 87.1 kg
[~2021-03-06 10:34] MED LIST changes: +AMIT25TA12 PO; -AMIT25TA9 PO; -MIDO5TAB2 PO; +MIDO5TAB3 PO
[2021-03-06 11:12] LABS: Basophils # (auto) 0.1 10 ^3/uL (0-0.2); Basophils % (auto) 1.3 % (0.0-2.0); Eosinophils # (auto) 0.1 10 ^3/uL (0-0.8); Eosinophils % (auto) 2.5 % (0.0-7.0); Hematocrit 37.5 % (36.0-46.0); Hemoglobin 12.3 g/dL (12.2-16.2); Lymphocytes # (auto) 1.4 10 ^3/uL (0.4-5.4); Lymphocytes % (auto) 31.4 % (10.0-50.0); Mean Corpuscular Hemoglobin 28.4 pg (28.0-32.0); Mean Corpuscular Hgb Conc. 32.7 g/dL (32.0-36.0); Mean Corpuscular Volume 86.8 fL (80.0-100.0); Monocytes # (auto) 0.3 10 ^3/uL (0-1.3); Monocytes % (auto) 6.4 % (0.0-12.0); Neutrophils # (auto) 2.6 10 ^3/uL (1.6-8.6); Neutrophils % (auto) 58.4 % (37.0-80.0); Red Blood Cells 4.32 10^6/uL (4.0-5.20); Red Cell Distribution Width 17.7 % (11.8-14.3); White Blood Cell 4.5 10^3/uL (4.4-10.8)
[2021-03-06 11:36] LABS: Albumin 3.7 g/dL (3.4-5.0); Calcium 9.1 mg/dL (8.5-10.1); Potassium 3.6 mmol/L (3.5-5.1)
[2021-03-06 11:39] LABS: BUN/Creatinine Ratio 18.2; Bilirubin, Total 0.8 mg/dL (0.2-1.0); Total Protein 7.7 g/dL (6.4-8.2)
[2021-03-06 11:55] LABS: Urine Bacteria FEW /hpf (None Seen); Urine Blood Negative /uL (Negative); Urine Hyaline Cast FEW /lpf (0 - 2); Urine Specific Gravity 1.007 (1.001-1.035); Urine WBC 1 /hpf (0 - 5)
[2021-03-06 14:28] VITALS: BP 102/62
[2021-03-21] MEDS ORDERED: SUCR1TAB22 PO (15:54)
[2021-03-21] MEDS ORDERED: PANT40TA2 PO (15:54)
== END 2021-03-06 14:40 | disposition home or self-care (01) ==
LOC: ER 10:34
DX: K52.9 Noninfective gastroenteritis and colitis, unspecified (principal); Z79.899 Other long term (current) drug therapy; Z88.5 Allergy status to narcotic agent
CPT/HCPCS: 36415; 80053; 81001; 85025

== ENCOUNTER 2021-03-11 12:45 | Emergency (ER) | payer MEDICAID ==
[~2021-03-11] VITALS: Ht 170.2 cm; Wt 82.6 kg
[~2021-03-11 12:45] MED LIST changes: -AMIT25TA12 PO; +AMIT25TA9 PO; +MIDO5TAB2 PO; -MIDO5TAB3 PO
[2021-03-11 12:53] VITALS: BP 92/59
[2021-03-11] MEDS ORDERED: SODIUM CHLORIDE 0.9% 1,000 ML IV ONE (13:00)
[2021-03-11 13:30] LABS: Basophils # (auto) 0 10 ^3/uL (0-0.2); Basophils % (auto) 0.6 % (0.0-2.0); Eosinophils # (auto) 0.1 10 ^3/uL (0-0.8); Eosinophils % (auto) 1.3 % (0.0-7.0); Hematocrit 40.8 % (36.0-46.0); Hemoglobin 13.3 g/dL (12.2-16.2); Lymphocytes # (auto) 2.3 10 ^3/uL (0.4-5.4); Lymphocytes % (auto) 39.6 % (10.0-50.0); Mean Corpuscular Hemoglobin 28.5 pg (28.0-32.0); Mean Corpuscular Hgb Conc. 32.6 g/dL (32.0-36.0); Mean Corpuscular Volume 87.4 fL (80.0-100.0); Monocytes # (auto) 0.4 10 ^3/uL (0-1.3); Monocytes % (auto) 7.2 % (0.0-12.0); Neutrophils % (auto) 51.3 % (37.0-80.0); Nucleated Red Blood Cells % 0.1 %; Red Blood Cells 4.67 10^6/uL (4.0-5.20); Red Cell Distribution Width 17.4 % (11.8-14.3); White Blood Cell 5.9 10^3/uL (4.4-10.8)
[2021-03-11 13:47] LABS: Albumin 3.8 g/dL (3.4-5.0); Calcium 8.7 mg/dL (8.5-10.1); Potassium 3.4 mmol/L (3.5-5.1)
[2021-03-11 13:51] LABS: BUN/Creatinine Ratio 21.7; Bilirubin, Total 0.9 mg/dL (0.2-1.0); Total Protein 8.1 g/dL (6.4-8.2)
[2021-03-21] MEDS ORDERED: SUCR1TAB22 PO (15:54)
[2021-03-21] MEDS ORDERED: PANT40TA2 PO (15:54)
== END 2021-03-11 16:23 | disposition home or self-care (01) ==
LOC: ER 12:45
DX: R19.7 Diarrhea, unspecified (principal); R42 Dizziness and giddiness; Z98.51 Tubal ligation status
CPT/HCPCS: 36415; 80053; 83690; 85025

== ENCOUNTER 2021-03-17 13:48 | Inpatient (IN) | payer MEDICAID ==
[~2021-03-17] VITALS: Ht 170.2 cm; Wt 120.0 kg
[2021-03-17] MEDS ORDERED: SODIUM CHLORIDE 0.9% 1,000 ML IV ONE ×2 (14:15→20:00)
[2021-03-17 14:45] LABS: Basophils # (auto) 0 10 ^3/uL (0-0.2); Basophils % (auto) 0.6 % (0.0-2.0); Eosinophils # (auto) 0.1 10 ^3/uL (0-0.8); Eosinophils % (auto) 1.8 % (0.0-7.0); Hematocrit 35.3 % (36.0-46.0); Hemoglobin 11.6 g/dL (12.2-16.2); Lymphocytes # (auto) 1.8 10 ^3/uL (0.4-5.4); Lymphocytes % (auto) 28.8 % (10.0-50.0); Mean Corpuscular Hemoglobin 29.2 pg (28.0-32.0); Mean Corpuscular Hgb Conc. 32.9 g/dL (32.0-36.0); Mean Corpuscular Volume 88.9 fL (80.0-100.0); Monocytes # (auto) 0.5 10 ^3/uL (0-1.3); Monocytes % (auto) 7.4 % (0.0-12.0); Neutrophils # (auto) 3.9 10 ^3/uL (1.6-8.6); Neutrophils % (auto) 61.4 % (37.0-80.0); Nucleated Red Blood Cells % 0.1 %; Red Blood Cells 3.97 10^6/uL (4.0-5.20); Red Cell Distribution Width 17.6 % (11.8-14.3); White Blood Cell 6.3 10^3/uL (4.4-10.8)
[2021-03-17 14:51] LABS: Alanine Aminotransferase 24 U/L (13-56); Albumin 3.2 g/dL (3.4-5.0); Anion Gap 8 (5-15); Aspartate Aminotransferase 25 U/L (15-37); BUN/Creatinine Ratio 23.3; Blood Urea Nitrogen 21 mg/dL (7-18); Calcium 8.4 mg/dL (8.5-10.1); Carbon Dioxide 29 mmol/L (21-32); Chloride 105 mmol/L (98-107); GFR African American 86 mL/min; GFR Non-African American 71 mL/min; Glucose 103 mg/dL (74-106); Potassium 3.9 mmol/L (3.5-5.1); Sodium 142 mmol/L (136-145)
[2021-03-17 14:56] LABS: Alkaline Phosphatase 69 U/L (45-117); Bilirubin, Total 0.2 mg/dL (0.2-1.0); Total Protein 6.8 g/dL (6.4-8.2)
[2021-03-17 19:16] LABS: Urine Bacteria FEW /hpf (None Seen); Urine Blood Negative /uL (Negative); Urine Mucus FEW (None Seen); Urine Specific Gravity 1.018 (1.001-1.035); Urine WBC <1 /hpf (0 - 5)
[2021-03-17] MEDS ORDERED: HYDROCORTISONE SOD SUCC 100 MG/2ML INJ VIAL IV ONE (20:00)
[2021-03-17] MEDS ORDERED: MORPHINE SULFATE INJECTION 2 MG/ML SYRG IV PRN ×2 (20:00→23:45)
[2021-03-17] MEDS ORDERED: NITROGLYCERIN 0.4 MG SL TAB SL PRN ×2 (20:00→23:45)
[2021-03-17] MEDS ORDERED: SODIUM CHLORIDE 0.9% 2,000 ML IV ONE (23:30)
[2021-03-17] MEDS ORDERED: FLUDROCORTISONE ACETATE 0.1 MG TAB PO ONE (23:30)
[2021-03-17] MEDS ORDERED: cefTRIAXone 1GM/50ML D5W 50 ML IV ONE (23:45)
[2021-03-17] MEDS ORDERED: LORazepam 0.5 MG TAB PO PRN (23:45)
[2021-03-17] MEDS ORDERED: ACETAMINOPHEN 325 MG TAB PO PRN (23:45)
[2021-03-17] MEDS ORDERED: ENOXAPARIN SOD 40 MG/0.4 ML SYRINGE SC ONE (23:45)
[2021-03-17] MEDS ORDERED: FAMOTIDINE (10MG/ML) 2ML VL IV ONE (23:45)
[2021-03-17] MEDS ORDERED: ALUM & MAG HYDROX-SIMETH LIQ(MAALOX) 30 ML PO PRN (23:45)
[2021-03-17] MEDS ORDERED: ONDANSETRON HCL 4 MG/2 ML VIAL IV PRN (23:45)
[2021-03-18] MEDS: HYDROCORTISONE SOD SUCC 100 MG/2ML INJ VIAL IV SCH ×4 (00:37→18:28)
[2021-03-18 00:41] LABS: Basophils # (auto) 0 10 ^3/uL (0-0.2); Basophils % (auto) 0.4 % (0.0-2.0); Eosinophils # (auto) 0.1 10 ^3/uL (0-0.8); Eosinophils % (auto) 0.9 % (0.0-7.0); Hemoglobin 11.3 g/dL (12.2-16.2); Lymphocytes # (auto) 1.1 10 ^3/uL (0.4-5.4); Lymphocytes % (auto) 16.6 % (10.0-50.0); Mean Corpuscular Hemoglobin 29.6 pg (28.0-32.0); Mean Corpuscular Hgb Conc. 33.3 g/dL (32.0-36.0); Monocytes # (auto) 0.2 10 ^3/uL (0-1.3); Monocytes % (auto) 3.2 % (0.0-12.0); Neutrophils # (auto) 5.2 10 ^3/uL (1.6-8.6); Neutrophils % (auto) 78.9 % (37.0-80.0); Nucleated Red Blood Cells % 0.1 %; Red Blood Cells 3.83 10^6/uL (4.0-5.20); Red Cell Distribution Width 17.6 % (11.8-14.3); White Blood Cell 6.6 10^3/uL (4.4-10.8)
[2021-03-18 01:11] LABS: Alcohol, Urine < 3.0 mg/dL (0-10); Amphetamine Screen, Urine NEGATIVE (NEGATIVE); Barbiturate Scree,Urine NEGATIVE (NEGATIVE); Benzodiazephine Screen, Urine NEGATIVE (NEGATIVE); Cannabinoid Screen, Urine NEGATIVE (NEGATIVE); Cocaine Screen, Urine NEGATIVE (NEGATIVE); Opiate Scree,Urine NEGATIVE (NEGATIVE); Phencyclidine Screen, Urine NEGATIVE (NEGATIVE)
[2021-03-18 01:24] LABS: LDL Cholesterol 103 mg/dL (< 100)
[2021-03-18 01:31] LABS: Cholesterol 173 mg/dL (< 200); HDL Cholesterol 31 mg/dL (40-59); Triglycerides 184 mg/dL (< 150)
[2021-03-18] MEDS: HYDROcodone-ACET 5/325MG TAB PO PRN ×3 (01:59→17:12)
[2021-03-18] MEDS: SODIUM CHLORIDE 0.9% 1,000 ML IV SCH ×2 (03:36→12:34)
[2021-03-18] MEDS: MORPHINE SULFATE INJECTION 2 MG/ML SYRG IV PRN ×2 (04:06→08:48)
[2021-03-18] MEDS: busPIRone HCL 10 MG TAB PO SCH ×2 (08:47→22:34)
[2021-03-18] MEDS: TOPIRAMATE 25 MG TAB PO SCH ×2 (08:48→22:35)
[2021-03-18] MEDS: DOCUSATE SOD 100 MG CAP PO PRN (08:49)
[2021-03-18 08:56] LABS: Free T4 (Free Thyroxine) 0.66 ng/dL (0.89-1.76); Prolactin 9.67 ng/mL (2.8-29.2)
[2021-03-18 08:57] LABS: Follicle Stimulating Hormone 28.5 IU/L (SEE BELOW); Free T3 2.29 pg/mL (2.3-4.2)
[2021-03-18] MEDS: ENOXAPARIN SOD 40 MG/0.4 ML SYRINGE SC SCH (10:00)
[2021-03-18] MEDS ORDERED: FAMOTIDINE (10MG/ML) 2ML VL IV SCH (10:00)
[2021-03-18] MEDS: FLUDROCORTISONE ACETATE 0.1 MG TAB PO SCH (12:34)
[2021-03-18] MEDS: SUCRALFATE 1 GM/10 ML ORAL SUSP PO SCH ×2 (17:12→22:34)
[2021-03-18] MEDS ORDERED: HYDROmorphone HCL 2 MG/ML VL IV ONE (20:00)
[2021-03-18] MEDS ORDERED: cefTRIAXone 1GM/50ML D5W 50 ML IV SCH (21:00)
[2021-03-18 22:00] VITALS: BP_SYST 112; BP_SYST 138; BP_DIAS 73; BP_DIAS 85
[2021-03-18 22:27] VITALS: BP 112/73
[2021-03-18] MEDS: PANTOPRAZOLE 40 MG TAB PO SCH (22:34)
[2021-03-18] MEDS: QUEtiapine FUMARATE 100 MG TAB PO SCH (22:34)
[2021-03-19] MEDS: HYDROCORTISONE SOD SUCC 100 MG/2ML INJ VIAL IV SCH ×4 (00:25→16:25)
[2021-03-19] MEDS: SODIUM CHLORIDE 0.9% 1,000 ML IV SCH ×2 (02:10→16:24)
[2021-03-19 05:00] VITALS: BP 143/87
[2021-03-19] MEDS: SUCRALFATE 1 GM/10 ML ORAL SUSP PO SCH ×4 (06:33→22:45)
[2021-03-19 08:00] VITALS: BP 123/75
[2021-03-19 09:06] VITALS: BP 123/75
[2021-03-19] MEDS: PANTOPRAZOLE 40 MG TAB PO SCH ×2 (09:10→22:46)
[2021-03-19] MEDS: FLUDROCORTISONE ACETATE 0.1 MG TAB PO SCH (09:10)
[2021-03-19] MEDS: busPIRone HCL 10 MG TAB PO SCH ×2 (09:10→22:45)
[2021-03-19] MEDS: TOPIRAMATE 25 MG TAB PO SCH ×2 (09:10→22:46)
[2021-03-19] MEDS: ENOXAPARIN SOD 40 MG/0.4 ML SYRINGE SC SCH (09:11)
[2021-03-19] MEDS ORDERED: HYOSCYAMINE SULF 0.125 MG ODT TAB PO PRN (12:30)
[2021-03-19 13:00] VITALS: BP 118/80
[2021-03-19] MEDS ORDERED: cefTRIAXone 1GM/50ML D5W 50 ML IV ONE (15:30)
[2021-03-19] MEDS: HYDROmorphone HCL 2 MG/ML VL IV PRN ×2 (16:26→22:28)
[2021-03-19 16:46] VITALS: BP 147/95
[2021-03-19 20:00] VITALS: BP_SYST 138; BP_DIAS 75; BP_DIAS 85
[2021-03-19] MEDS: QUEtiapine FUMARATE 100 MG TAB PO SCH (22:46)
[2021-03-20] MEDS: HYDROCORTISONE SOD SUCC 100 MG/2ML INJ VIAL IV SCH ×4 (00:47→17:54)
[2021-03-20] MEDS: SODIUM CHLORIDE 0.9% 1,000 ML IV SCH ×2 (04:50→18:00)
[2021-03-20] MEDS: HYDROmorphone HCL 2 MG/ML VL IV PRN ×4 (05:21→23:58)
[2021-03-20 06:05] LABS: Basophils # (auto) 0 10 ^3/uL (0-0.2); Basophils % (auto) 0.3 % (0.0-2.0); Eosinophils # (auto) 0 10 ^3/uL (0-0.8); Eosinophils % (auto) 0.1 % (0.0-7.0); Hematocrit 29.6 % (36.0-46.0); Hemoglobin 9.9 g/dL (12.2-16.2); Lymphocytes # (auto) 1.2 10 ^3/uL (0.4-5.4); Lymphocytes % (auto) 20.5 % (10.0-50.0); Mean Corpuscular Hemoglobin 29.7 pg (28.0-32.0); Mean Corpuscular Hgb Conc. 33.5 g/dL (32.0-36.0); Mean Corpuscular Volume 88.7 fL (80.0-100.0); Monocytes # (auto) 0.3 10 ^3/uL (0-1.3); Monocytes % (auto) 4.2 % (0.0-12.0); Neutrophils # (auto) 4.5 10 ^3/uL (1.6-8.6); Neutrophils % (auto) 74.9 % (37.0-80.0); Nucleated Red Blood Cells % 0.1 %; Red Blood Cells 3.34 10^6/uL (4.0-5.20); Red Cell Distribution Width 17.7 % (11.8-14.3)
[2021-03-20 06:13] LABS: Albumin 2.6 g/dL (3.4-5.0); Calcium 7.9 mg/dL (8.5-10.1); Potassium 3.4 mmol/L (3.5-5.1)
[2021-03-20 06:18] LABS: BUN/Creatinine Ratio 26.6; Bilirubin, Total 0.2 mg/dL (0.2-1.0)
[2021-03-20] MEDS: SUCRALFATE 1 GM/10 ML ORAL SUSP PO SCH ×4 (06:22→22:11)
[2021-03-20 08:00] VITALS: BP 129/76
[2021-03-20] MEDS: cefTRIAXone 1GM/50ML D5W 50 ML IV SCH (09:53)
[2021-03-20] MEDS: busPIRone HCL 10 MG TAB PO SCH ×2 (09:53→22:12)
[2021-03-20] MEDS: TOPIRAMATE 25 MG TAB PO SCH ×2 (09:54→22:12)
[2021-03-20] MEDS: ENOXAPARIN SOD 40 MG/0.4 ML SYRINGE SC SCH (09:54)
[2021-03-20] MEDS: FLUDROCORTISONE ACETATE 0.1 MG TAB PO SCH (09:54)
[2021-03-20] MEDS: PANTOPRAZOLE 40 MG TAB PO SCH ×2 (09:54→22:12)
[2021-03-20 12:00] VITALS: BP 96/61
[2021-03-20] MEDS ORDERED: HYDROcodone-ACET 10/325MG TAB PO PRN (12:15)
[2021-03-20] MEDS ORDERED: POTASSIUM CHL 20 Meq TABLET PO ONE (15:00)
[2021-03-20 16:00] VITALS: BP 150/68
[2021-03-20 16:57] LABS: INR 0.96 (0.9-1.15)
[2021-03-20 20:00] VITALS: BP 150/75
[2021-03-20] MEDS: QUEtiapine FUMARATE 100 MG TAB PO SCH (22:11)
[2021-03-21] MEDS: HYDROmorphone HCL 2 MG/ML VL IV PRN ×2 (05:48→11:53)
[2021-03-21] MEDS: SUCRALFATE 1 GM/10 ML ORAL SUSP PO SCH ×3 (05:49→18:39)
[2021-03-21 06:18] LABS: Basophils # (auto) 0 10 ^3/uL (0-0.2); Basophils % (auto) 0.4 % (0.0-2.0); Eosinophils # (auto) 0.1 10 ^3/uL (0-0.8); Hematocrit 28.5 % (36.0-46.0); Hemoglobin 9.6 g/dL (12.2-16.2); Lymphocytes # (auto) 2.8 10 ^3/uL (0.4-5.4); Lymphocytes % (auto) 44.2 % (10.0-50.0); Mean Corpuscular Hemoglobin 29.8 pg (28.0-32.0); Mean Corpuscular Hgb Conc. 33.5 g/dL (32.0-36.0); Mean Corpuscular Volume 88.9 fL (80.0-100.0); Monocytes # (auto) 0.4 10 ^3/uL (0-1.3); Monocytes % (auto) 6.8 % (0.0-12.0); Neutrophils % (auto) 47.6 % (37.0-80.0); Red Blood Cells 3.21 10^6/uL (4.0-5.20); Red Cell Distribution Width 17.2 % (11.8-14.3); White Blood Cell 6.4 10^3/uL (4.4-10.8)
[2021-03-21 06:38] LABS: Albumin 2.4 g/dL (3.4-5.0); Calcium 7.9 mg/dL (8.5-10.1)
[2021-03-21 06:42] LABS: Bilirubin, Total 0.2 mg/dL (0.2-1.0); Total Protein 5.4 g/dL (6.4-8.2)
[2021-03-21] MEDS: cefTRIAXone 1GM/50ML D5W 50 ML IV SCH (10:33)
[2021-03-21] MEDS: DOCUSATE SOD 100 MG CAP PO PRN (10:33)
[2021-03-21] MEDS: busPIRone HCL 10 MG TAB PO SCH (10:33)
[2021-03-21] MEDS: FLUDROCORTISONE ACETATE 0.1 MG TAB PO SCH (10:33)
[2021-03-21] MEDS: PANTOPRAZOLE 40 MG TAB PO SCH (10:34)
[2021-03-21] MEDS: ENOXAPARIN SOD 40 MG/0.4 ML SYRINGE SC SCH (10:34)
[2021-03-21] MEDS: TOPIRAMATE 25 MG TAB PO SCH (10:34)
[2021-03-21] MEDS ORDERED: POTASSIUM CHL 20MEQ/100ML 100 ML IV SCH (11:45)
[2021-03-21 12:00] VITALS: BP 134/95
[2021-03-21] MEDS ORDERED: fentaNYL CITRATE 100 MCG/2 ML VL ONE (12:55)
[2021-03-21] MEDS ORDERED: SODIUM CHLORIDE LOCK 10 ML ONE (12:56)
[2021-03-21] MEDS ORDERED: PROPOFOL 10 MG/ML 20 ML IV ONE (12:56)
[2021-03-21] MEDS ORDERED: MIDAZOLAM HCL 2MG/2ML 2ml VIAL (1mg/ml) ONE (12:56)
[2021-03-21] MEDS ORDERED: ONDANSETRON HCL 4 MG/2 ML VIAL ONE (12:56)
[2021-03-21] MEDS ORDERED: HYDROCORTISONE SOD SUCC 100 MG/2ML INJ VIAL ONE (13:04)
[2021-03-21] MEDS ORDERED: HYDROmorphone HCL 2 MG/ML VL IV PRN (13:30)
[2021-03-21] MEDS ORDERED: MORPHINE SULFATE 4 MG/ML SYR/VIAL IV PRN (13:30)
[2021-03-21] MEDS ORDERED: METOCLOPRAMIDE HCL 5MG/ml INJ 2ml VIAL IV PRN (13:30)
[2021-03-21] MEDS ORDERED: SUCR1TAB22 PO (15:54)
[2021-03-21] MEDS ORDERED: PANT40TA2 PO (15:54)
[2021-03-21 17:00] VITALS: BP_SYST 132; BP_SYST 133; BP_DIAS 69; BP_DIAS 83
[2021-03-21] MEDS ORDERED: POTASSIUM CHL 20MEQ/100ML 200 ML IV ONE (18:30)
[2021-03-21 23:00] VITALS: BP_SYST 122; BP_SYST 125; BP_DIAS 77
== END 2021-03-21 23:14 | disposition home or self-care (01) | DRG 48 ==
LOC: ER 13:48 → TELE 19:48 → TELE-CENTR 03-18 21:58
PROVIDERS: ADMIT Hospitalist; ATTEND Internal Medicine
PROC: 05HC33Z Insertion of Infusion Device into Left Basilic Vein, Percutaneous Approach (ICD-10-PCS; principal; 2021-03-19)
PROC: B54NZZA Ultrasonography of Left Upper Extremity Veins, Guidance (ICD-10-PCS; 2021-03-19)
PROC: 0DB68ZX Excision of Stomach, Via Natural or Artificial Opening Endoscopic, Diagnostic (ICD-10-PCS; 2021-03-21)
DX: G90.8 Other disorders of autonomic nervous system (principal); R57.8 Other shock; E44.0 Moderate protein-calorie malnutrition; E11.22 Type 2 diabetes mellitus with diabetic chronic kidney disease; N17.9 Acute kidney failure, unspecified; I95.9 Hypotension, unspecified; E27.2 Addisonian crisis; D64.9 Anemia, unspecified; E66.01 Morbid (severe) obesity due to excess calories; F32.9 Major depressive disorder, single episode, unspecified; F41.9 Anxiety disorder, unspecified; M19.90 Unspecified osteoarthritis, unspecified site; G89.4 Chronic pain syndrome; Z20.822 Contact with and (suspected) exposure to COVID-19; N18.2 Chronic kidney disease, stage 2 (mild); E78.5 Hyperlipidemia, unspecified; E87.6 Hypokalemia; F11.20 Opioid dependence, uncomplicated; I12.9 Hypertensive chronic kidney disease with stage 1 through stage 4 chronic kidney disease, or unspecified chronic kidney disease; K29.70 Gastritis, unspecified, without bleeding; T40.605A Adverse effect of unspecified narcotics, initial encounter; J45.909 Unspecified asthma, uncomplicated; N39.0 Urinary tract infection, site not specified; Z98.84 Bariatric surgery status; Z88.6 Allergy status to analgesic agent; Z98.51 Tubal ligation status; Z79.899 Other long term (current) drug therapy; Z80.3 Family history of malignant neoplasm of breast; Z82.49 Family history of ischemic heart disease and other diseases of the circulatory system; Z83.3 Family history of diabetes mellitus; Z68.41 Body mass index [BMI] 40.0-44.9, adult; Y92.89 Other specified places as the place of occurrence of the external cause
CPT/HCPCS: 36415; 71045; 76705; 78226; 80053; 80061; 80307; 81001; 81025; 82024; 82088; 82533; 83001; 83036; 83880; 84146; 84244; 84439; 84443; 84481; 84484; 85025; 85610; 87040; 87081; 87086; 87426; 93005; 96361; 96365; 96372; 96375; 96376; G0378; J0696; J2250; J2405; J2704; J3480; J3490

== ENCOUNTER 2021-04-16 08:58 | Emergency (ER) | payer MEDICAID ==
[~2021-04-16] VITALS: Ht 170.2 cm; Wt 86.2 kg
[~2021-04-16 08:58] MED LIST changes: -AMIT25TA9 PO; -MIDO5TAB2 PO; -OXYC15TA77 PO; +PANT40TA2 PO; +SUCR1TAB22 PO
[2021-04-16] MEDS ORDERED: MEPERIDINE HCL (50 MG/ML) 1 ML VIAL IM ONE (09:30)
[2021-04-16] MEDS ORDERED: PROMETHAZINE HCL 25 MG/ML 1ML IM ONE (09:30)
[2021-04-16 10:15] VITALS: BP 101/80
== END 2021-04-16 10:18 | disposition home or self-care (01) ==
LOC: ER 08:58
DX: S76.911A Strain of unspecified muscles, fascia and tendons at thigh level, right thigh, initial encounter (principal); G89.29 Other chronic pain; M54.50 Low back pain, unspecified; Z86.2 Personal history of diseases of the blood and blood-forming organs and certain disorders involving the immune mechanism; Z79.899 Other long term (current) drug therapy; Y93.89 Activity, other specified; Y92.89 Other specified places as the place of occurrence of the external cause; Y99.8 Other external cause status
CPT/HCPCS: 96372; 99284; J2175; J2550

== ENCOUNTER 2021-04-23 11:59 | Emergency (ER) | payer MEDICAID ==
[~2021-04-23] VITALS: Ht 170.2 cm; Wt 86.2 kg
[2021-04-23] MEDS ORDERED: DONNATAL 5ml ORAL Elix (BELLADONNA ALK-PHENOBARB) PO ONE (12:15)
[2021-04-23] MEDS ORDERED: LIDOCAINE VISCOUS 2% 15ML UD PO ONE (12:15)
[2021-04-23] MEDS ORDERED: ALUM & MAG HYDROX-SIMETH LIQ(MAALOX) 30 ML PO ONE (12:15)
[2021-04-23 14:06] LABS: Urine Bacteria MOD /hpf (None Seen); Urine Blood Negative /uL (Negative); Urine Hyaline Cast FEW /lpf (0 - 2); Urine Mucus FEW (None Seen); Urine Specific Gravity 1.018 (1.001-1.035); Urine WBC 229 /hpf (0 - 5)
[2021-04-23 14:44] LABS: Basophils # (auto) 0 10 ^3/uL (0-0.2); Basophils % (auto) 0.5 % (0.0-2.0); Eosinophils # (auto) 0.1 10 ^3/uL (0-0.8); Eosinophils % (auto) 1.1 % (0.0-7.0); Hematocrit 35.3 % (36.0-46.0); Hemoglobin 11.5 g/dL (12.2-16.2); Lymphocytes # (auto) 1.2 10 ^3/uL (0.4-5.4); Lymphocytes % (auto) 21.2 % (10.0-50.0); Mean Corpuscular Hemoglobin 28.7 pg (28.0-32.0); Mean Corpuscular Hgb Conc. 32.6 g/dL (32.0-36.0); Mean Corpuscular Volume 88.1 fL (80.0-100.0); Monocytes # (auto) 0.6 10 ^3/uL (0-1.3); Monocytes % (auto) 9.9 % (0.0-12.0); Neutrophils # (auto) 3.8 10 ^3/uL (1.6-8.6); Neutrophils % (auto) 67.3 % (37.0-80.0); Nucleated Red Blood Cells % 0.2 %; Red Cell Distribution Width 14.9 % (11.8-14.3); White Blood Cell 5.7 10^3/uL (4.4-10.8)
[2021-04-23] MEDS ORDERED: cefTRIAXone W LIDOCAINE 1 GM IM IM ONE (14:45)
[2021-04-23 15:02] LABS: BUN/Creatinine Ratio 16.2; Calcium 8.4 mg/dL (8.5-10.1); Potassium 3.3 mmol/L (3.5-5.1)
[2021-04-23 15:05] LABS: Bilirubin, Total 0.5 mg/dL (0.2-1.0); Total Protein 7.8 g/dL (6.4-8.2)
[2021-04-23] MEDS ORDERED: POTASSIUM EFFERVESENT TAB 25 MEQ PO ONE (15:30)
[2021-04-23] MEDS ORDERED: cefTRIAXone 1GM/50ML D5W 50 ML IV ONE ×2 (16:00→16:02)
[2021-04-23 16:09] VITALS: BP 135/75
[2021-04-23] MEDS ORDERED: IBUPROFEN 800 MG TAB PO ONE (16:15)
== END 2021-04-23 16:22 | disposition home or self-care (01) ==
LOC: ER 11:59
DX: N39.0 Urinary tract infection, site not specified (principal); E87.6 Hypokalemia; R11.0 Nausea; Z79.899 Other long term (current) drug therapy; Z86.2 Personal history of diseases of the blood and blood-forming organs and certain disorders involving the immune mechanism
CPT/HCPCS: 36415; 80053; 81001; 83690; 85025; 93005; 96365; 99284; J0696

== ENCOUNTER 2021-05-13 16:18 | Emergency (ER) | payer MEDICAID ==
[~2021-05-13] VITALS: Ht 170.2 cm; Wt 86.2 kg
[2021-05-13 19:16] LABS: Basophils # (auto) 0.1 10 ^3/uL (0-0.2); Basophils % (auto) 0.9 % (0.0-2.0); Eosinophils # (auto) 0.1 10 ^3/uL (0-0.8); Eosinophils % (auto) 1.7 % (0.0-7.0); Hemoglobin 12.3 g/dL (12.2-16.2); Lymphocytes # (auto) 1.8 10 ^3/uL (0.4-5.4); Lymphocytes % (auto) 29.4 % (10.0-50.0); Mean Corpuscular Hemoglobin 28.8 pg (28.0-32.0); Mean Corpuscular Hgb Conc. 32.4 g/dL (32.0-36.0); Mean Corpuscular Volume 89.1 fL (80.0-100.0); Monocytes # (auto) 0.3 10 ^3/uL (0-1.3); Monocytes % (auto) 5.4 % (0.0-12.0); Neutrophils # (auto) 3.8 10 ^3/uL (1.6-8.6); Neutrophils % (auto) 62.6 % (37.0-80.0); Nucleated Red Blood Cells % 0.1 %; Red Blood Cells 4.26 10^6/uL (4.0-5.20); Red Cell Distribution Width 14.6 % (11.8-14.3); White Blood Cell 6.1 10^3/uL (4.4-10.8)
[2021-05-13 19:30] LABS: Albumin 3.6 g/dL (3.4-5.0); Calcium 8.7 mg/dL (8.5-10.1); Potassium 4.4 mmol/L (3.5-5.1)
[2021-05-13 19:33] LABS: BUN/Creatinine Ratio 22.4; Bilirubin, Total 0.2 mg/dL (0.2-1.0)
[2021-05-13 21:03] VITALS: BP 145/92
== END 2021-05-13 20:55 | disposition home or self-care (01) ==
LOC: ER 16:18
DX: J45.901 Unspecified asthma with (acute) exacerbation (principal); I10 Essential (primary) hypertension; Z90.710 Acquired absence of both cervix and uterus
CPT/HCPCS: 36415; 71046; 80053; 83735; 85025; 93005

== ENCOUNTER 2021-05-22 20:08 | Emergency (ER) | payer MEDICAID ==
[~2021-05-22] VITALS: Ht 170.2 cm; Wt 90.7 kg
[2021-05-22 21:20] LABS: Urine Bacteria FEW /hpf (None Seen); Urine Blood Negative /uL (Negative); Urine Mucus FEW (None Seen); Urine Specific Gravity 1.025 (1.001-1.035); Urine WBC 580 /hpf (0 - 5)
[2021-05-22 22:21] LABS: Basophils # (auto) 0 10 ^3/uL (0-0.2); Basophils % (auto) 0.3 % (0.0-2.0); Eosinophils # (auto) 0.2 10 ^3/uL (0-0.8); Eosinophils % (auto) 3.5 % (0.0-7.0); Hematocrit 33.5 % (36.0-46.0); Hemoglobin 11.1 g/dL (12.2-16.2); Lymphocytes # (auto) 2.2 10 ^3/uL (0.4-5.4); Lymphocytes % (auto) 44.1 % (10.0-50.0); Mean Corpuscular Hemoglobin 29.4 pg (28.0-32.0); Mean Corpuscular Hgb Conc. 33.1 g/dL (32.0-36.0); Mean Corpuscular Volume 88.9 fL (80.0-100.0); Monocytes # (auto) 0.3 10 ^3/uL (0-1.3); Monocytes % (auto) 6.8 % (0.0-12.0); Neutrophils # (auto) 2.3 10 ^3/uL (1.6-8.6); Neutrophils % (auto) 45.3 % (37.0-80.0); Nucleated Red Blood Cells % 0.1 %; Red Blood Cells 3.77 10^6/uL (4.0-5.20); Red Cell Distribution Width 15.4 % (11.8-14.3); White Blood Cell 5.1 10^3/uL (4.4-10.8)
[2021-05-22 22:45] LABS: Albumin 3.3 g/dL (3.4-5.0); BUN/Creatinine Ratio 27.5; Calcium 8.3 mg/dL (8.5-10.1)
[2021-05-22 22:57] LABS: Bilirubin, Total 0.3 mg/dL (0.2-1.0); Total Protein 7.1 g/dL (6.4-8.2)
[2021-05-23 08:30] VITALS: BP 124/76
== END 2021-05-23 10:36 | disposition home or self-care (01) ==
LOC: ER 20:10
DX: R07.89 Other chest pain (principal); J45.909 Unspecified asthma, uncomplicated; I10 Essential (primary) hypertension; Z32.02 Encounter for pregnancy test, result negative; Z98.51 Tubal ligation status
CPT/HCPCS: 36415; 71045; 80053; 81001; 81025; 83880; 84484; 85025; 93005

== ENCOUNTER → 2021-06-23 | Emergency (ER) | payer MEDICAID | END | disposition left against medical advice (07) | LOC: ER 17:41 | DX: I95.9 Hypotension, unspecified (principal); Z53.21 Procedure and treatment not carried out due to patient leaving prior to being seen by health care provider ==

== ENCOUNTER 2021-08-15 12:35 | Inpatient (IN) | payer MEDICAID ==
[~2021-08-15] VITALS: Ht 172.7 cm; Wt 98.4 kg
[2021-08-15] MEDS ORDERED: ALBUTEROL SULF 2.5 MG/0.5ML(0.5%) NEB SOLN NEB ONE (13:30)
[2021-08-15] MEDS ORDERED: SODIUM CHLORIDE 0.9% 2,000 ML IV ONE (13:30)
[2021-08-15] MEDS ORDERED: LACTATED RINGER'S 2,000 ML IV ONE (13:30)
[2021-08-15] MEDS ORDERED: IPRATROPIUM BROM 0.5 MG/2.5ML INH SOL NEB ONE (13:30)
[2021-08-15 14:03] LABS: Basophils # (auto) 0 10 ^3/uL (0-0.2); Basophils % (auto) 1.7 % (0.0-2.0); Eosinophils # (auto) 0 10 ^3/uL (0-0.8); Eosinophils % (auto) 1.7 % (0.0-7.0); Hematocrit 33.4 % (36.0-46.0); Hemoglobin 11.2 g/dL (12.2-16.2); Lymphocytes # (auto) 1.1 10 ^3/uL (0.4-5.4); Lymphocytes % (auto) 38.3 % (10.0-50.0); Mean Corpuscular Hemoglobin 30.6 pg (28.0-32.0); Mean Corpuscular Hgb Conc. 33.6 g/dL (32.0-36.0); Mean Corpuscular Volume 90.9 fL (80.0-100.0); Monocytes # (auto) 0.4 10 ^3/uL (0-1.3); Monocytes % (auto) 12.7 % (0.0-12.0); Neutrophils # (auto) 1.3 10 ^3/uL (1.6-8.6); Neutrophils % (auto) 45.6 % (37.0-80.0); Nucleated Red Blood Cells % 0.2 %; Red Blood Cells 3.68 10^6/uL (4.0-5.20); Red Cell Distribution Width 15.1 % (11.8-14.3); White Blood Cell 2.8 10^3/uL (4.4-10.8)
[2021-08-15 14:14] LABS: Albumin 3.5 g/dL (3.4-5.0); Calcium 8.4 mg/dL (8.5-10.1); Potassium 4.1 mmol/L (3.5-5.1)
[2021-08-15 14:20] LABS: BUN/Creatinine Ratio 20.8; Bilirubin, Total 0.4 mg/dL (0.2-1.0); Total Protein 6.9 g/dL (6.4-8.2)
[2021-08-15] MEDS ORDERED: IOHEXOL 350 MG/ML 100ML IJ ONE (16:12)
[2021-08-15 17:01] LABS: Cortisol,PM 2.14 ug/dL (3.09-16.66)
[2021-08-15] MEDS ORDERED: ACETAMINOPHEN 500 MG TAB PO ONE (18:00)
[2021-08-15 18:19] LABS: Free T4 (Free Thyroxine) 0.66 ng/dL (0.89-1.76)
[2021-08-15] MEDS ORDERED: DexAMETHasone SOD PHOS 10MG/1ML VIAL INJ IV ONE (18:30)
[2021-08-15 20:55] LABS: Urine Bacteria NONE SEEN /hpf (None Seen); Urine Blood Negative /uL (Negative); Urine Mucus FEW (None Seen); Urine WBC 1 /hpf (0 - 5)
[2021-08-15 21:05] LABS: Urine Specific Gravity > 1.050 (1.001-1.035)
[2021-08-15] MEDS ORDERED: ONDANSETRON HCL 4 MG/2 ML VIAL IV PRN (22:00)
[2021-08-15] MEDS ORDERED: ACETAMINOPHEN 325 MG TAB PO PRN (22:00)
[2021-08-15] MEDS ORDERED: NITROGLYCERIN 0.4 MG SL TAB SL PRN (22:00)
[2021-08-15] MEDS ORDERED: AZITHROMYCIN 500MG/ 250ML 250 ML IV ONE (22:00)
[2021-08-15] MEDS ORDERED: MORPHINE SULFATE INJECTION 2 MG/ML SYRG IV PRN (22:00)
[2021-08-15] MEDS ORDERED: TEMAZEPAM 15 MG CAP PO PRN (22:00)
[2021-08-15] MEDS ORDERED: ALBUTEROL SULF 2.5 MG/0.5ML(0.5%) NEB SOLN NEB PRN (22:00)
[2021-08-15] MEDS: QUEtiapine FUMARATE 100 MG TAB PO SCH (22:35)
[2021-08-15] MEDS: TOPIRAMATE 25 MG TAB PO SCH (22:35)
[2021-08-15] MEDS ORDERED: ALBUMIN 5% 250 ML IV ONE (23:45)
[2021-08-16 05:00] VITALS: BP 102/49
[2021-08-16 05:02] VITALS: BP 102/49
[2021-08-16] MEDS: SODIUM CHLORIDE 0.9% 1,000 ML IV SCH ×2 (05:13→18:05)
[2021-08-16] MEDS: ALBUTEROL SULF HFA 90MCG INH 200DOSE IN SCH ×3 (06:00→19:53)
[2021-08-16] MEDS ORDERED: ONDA-144 PO (06:56)
[2021-08-16] MEDS ORDERED: QUET50TA PO (06:56)
[2021-08-16] MEDS ORDERED: DULO20CA PO (06:56)
[2021-08-16] MEDS ORDERED: GABA-339 PO (06:56)
[2021-08-16 07:20] LABS: Basophils # (auto) 0 10 ^3/uL (0-0.2); Basophils % (auto) 1.5 % (0.0-2.0); Eosinophils # (auto) 0 10 ^3/uL (0-0.8); Eosinophils % (auto) 0.2 % (0.0-7.0); Hematocrit 33.7 % (36.0-46.0); Hemoglobin 11.2 g/dL (12.2-16.2); Lymphocytes # (auto) 0.7 10 ^3/uL (0.4-5.4); Lymphocytes % (auto) 30.8 % (10.0-50.0); Mean Corpuscular Hemoglobin 30.4 pg (28.0-32.0); Mean Corpuscular Hgb Conc. 33.3 g/dL (32.0-36.0); Mean Corpuscular Volume 91.1 fL (80.0-100.0); Monocytes # (auto) 0.1 10 ^3/uL (0-1.3); Monocytes % (auto) 5.2 % (0.0-12.0); Neutrophils # (auto) 1.4 10 ^3/uL (1.6-8.6); Neutrophils % (auto) 62.3 % (37.0-80.0); Nucleated Red Blood Cells % 0.4 %; Red Blood Cells 3.69 10^6/uL (4.0-5.20); Red Cell Distribution Width 15.1 % (11.8-14.3); White Blood Cell 2.2 10^3/uL (4.4-10.8)
[2021-08-16 08:04] LABS: Albumin 3.3 g/dL (3.4-5.0); BUN/Creatinine Ratio 24.2; Bilirubin, Total 0.3 mg/dL (0.2-1.0); Calcium 9.3 mg/dL (8.5-10.1); Total Protein 6.6 g/dL (6.4-8.2)
[2021-08-16 09:00] VITALS: BP 121/76
[2021-08-16] MEDS ORDERED: PANTOPRAZOLE 40 MG TAB PO SCH (10:00)
[2021-08-16] MEDS: AZITHROMYCIN 500MG/ 250ML 250 ML IV SCH (10:20)
[2021-08-16] MEDS: TOPIRAMATE 25 MG TAB PO SCH ×2 (10:20→21:44)
[2021-08-16] MEDS: DexAMETHasone SOD PHOS 10MG/1ML VIAL INJ IV SCH (10:20)
[2021-08-16] MEDS: ENOXAPARIN SOD 40 MG/0.4 ML SYRINGE SC SCH (10:21)
[2021-08-16] MEDS: BUDESONIDE (INHALATION) 180 MCG IH IN SCH ×2 (10:52→19:52)
[2021-08-16] MEDS ORDERED: guaiFENesin-DM 100/10mg/5ml SYR PO PRN (17:15)
[2021-08-16] MEDS: traMADol HCL 50 MG TAB PO PRN (18:13)
[2021-08-16 18:23] VITALS: BP 92/59
[2021-08-16] MEDS: QUEtiapine FUMARATE 100 MG TAB PO SCH (21:43)
[2021-08-16 22:00] VITALS: BP 92/50
[2021-08-17 04:50] VITALS: BP_SYST 118; BP_SYST 99; BP_DIAS 60; BP_DIAS 69
[2021-08-17] MEDS: SODIUM CHLORIDE 0.9% 1,000 ML IV SCH ×2 (07:25→21:09)
[2021-08-17 08:00] VITALS: BP 124/84
[2021-08-17] MEDS: DexAMETHasone SOD PHOS 10MG/1ML VIAL INJ IV SCH (09:36)
[2021-08-17] MEDS: TOPIRAMATE 25 MG TAB PO SCH ×2 (09:36→21:09)
[2021-08-17] MEDS: AZITHROMYCIN 500MG/ 250ML 250 ML IV SCH (09:36)
[2021-08-17] MEDS: ENOXAPARIN SOD 40 MG/0.4 ML SYRINGE SC SCH (09:37)
[2021-08-17] MEDS: BUDESONIDE (INHALATION) 180 MCG IH IN SCH ×2 (11:09→21:50)
[2021-08-17] MEDS: ALBUTEROL SULF HFA 90MCG INH 200DOSE IN PRN ×2 (11:09→21:50)
[2021-08-17 12:00] VITALS: BP 99/62
[2021-08-17 15:51] VITALS: BP 110/69
[2021-08-17] MEDS: traMADol HCL 50 MG TAB PO PRN (20:21)
[2021-08-17] MEDS: QUEtiapine FUMARATE 100 MG TAB PO SCH (21:09)
[2021-08-17 22:06] VITALS: BP 121/82
[2021-08-18 05:34] VITALS: BP 145/85
[2021-08-18] MEDS: BUDESONIDE (INHALATION) 180 MCG IH IN SCH ×2 (06:20→19:24)
[2021-08-18] MEDS: traMADol HCL 50 MG TAB PO PRN ×3 (08:25→20:15)
[2021-08-18 09:00] VITALS: BP 119/63
[2021-08-18] MEDS ORDERED: SODIUM CHLORIDE 0.9% 1,000 ML IV SCH (10:00)
[2021-08-18] MEDS: AZITHROMYCIN 500MG/ 250ML 250 ML IV SCH (11:00)
[2021-08-18] MEDS: DexAMETHasone SOD PHOS 10MG/1ML VIAL INJ IV SCH (11:00)
[2021-08-18] MEDS: ENOXAPARIN SOD 40 MG/0.4 ML SYRINGE SC SCH (11:00)
[2021-08-18] MEDS: TOPIRAMATE 25 MG TAB PO SCH ×2 (11:00→22:28)
[2021-08-18] MEDS: ASCORBIC ACID 500 MG TAB PO SCH ×2 (11:01→22:28)
[2021-08-18] MEDS: CHOLECALCIFEROL (VITD3) 2,000 UNIT CAP/TAB PO SCH (11:02)
[2021-08-18 13:00] VITALS: BP 93/54
[2021-08-18] MEDS ORDERED: PANTOPRAZOLE 40 MG/10 ML VIAL INJ IV ONE (14:15)
[2021-08-18] MEDS ORDERED: SUCRALFATE 1 GM TAB PO ONE (14:15)
[2021-08-18] MEDS: SUCRALFATE 1 GM TAB PO SCH ×2 (16:44→22:27)
[2021-08-18 17:00] VITALS: BP 127/82
[2021-08-18] MEDS: MIDODRINE HCL 10 MG TAB PO SCH (18:00)
[2021-08-18] MEDS: ALBUTEROL SULF HFA 90MCG INH 200DOSE IN PRN (19:24)
[2021-08-18 20:00] VITALS: BP 103/63
[2021-08-18 22:18] VITALS: BP 103/63
[2021-08-18] MEDS: PANTOPRAZOLE 40 MG/10 ML VIAL INJ IV SCH (22:27)
[2021-08-18] MEDS: busPIRone HCL 10 MG TAB PO SCH (22:27)
[2021-08-18] MEDS: QUEtiapine FUMARATE 100 MG TAB PO SCH (22:27)
[2021-08-19 05:18] VITALS: BP 145/85
[2021-08-19] MEDS: MIDODRINE HCL 10 MG TAB PO SCH ×4 (06:00→17:42)
[2021-08-19] MEDS: SUCRALFATE 1 GM TAB PO SCH ×4 (06:25→17:41)
[2021-08-19 06:44] LABS: Basophils # (auto) 0 10 ^3/uL (0-0.2); Basophils % (auto) 0.4 % (0.0-2.0); Eosinophils # (auto) 0 10 ^3/uL (0-0.8); Eosinophils % (auto) 0.3 % (0.0-7.0); Hematocrit 31.9 % (36.0-46.0); Hemoglobin 10.5 g/dL (12.2-16.2); Lymphocytes # (auto) 2.4 10 ^3/uL (0.4-5.4); Lymphocytes % (auto) 48.6 % (10.0-50.0); Mean Corpuscular Hemoglobin 29.8 pg (28.0-32.0); Mean Corpuscular Hgb Conc. 32.8 g/dL (32.0-36.0); Mean Corpuscular Volume 90.9 fL (80.0-100.0); Monocytes # (auto) 0.3 10 ^3/uL (0-1.3); Monocytes % (auto) 5.2 % (0.0-12.0); Neutrophils # (auto) 2.2 10 ^3/uL (1.6-8.6); Neutrophils % (auto) 45.5 % (37.0-80.0); Nucleated Red Blood Cells % 0.1 %; Red Blood Cells 3.51 10^6/uL (4.0-5.20); Red Cell Distribution Width 15.1 % (11.8-14.3); White Blood Cell 4.9 10^3/uL (4.4-10.8)
[2021-08-19 06:59] LABS: BUN/Creatinine Ratio 34.3; Calcium 8.7 mg/dL (8.5-10.1); Potassium 3.7 mmol/L (3.5-5.1)
[2021-08-19 09:00] VITALS: BP 119/83
[2021-08-19] MEDS: BUDESONIDE (INHALATION) 180 MCG IH IN SCH (09:56)
[2021-08-19] MEDS: ALBUTEROL SULF HFA 90MCG INH 200DOSE IN PRN (09:56)
[2021-08-19] MEDS ORDERED: DexAMETHasone SOD PHOS 4 MG/1ML SDV INJ IV SCH (10:00)
[2021-08-19] MEDS ORDERED: AZITHROMYCIN 250 MG TAB PO SCH (10:00)
[2021-08-19] MEDS ORDERED: PANTOPRAZOLE 40 MG/10 ML VIAL INJ IV SCH (10:00)
[2021-08-19] MEDS: traMADol HCL 50 MG TAB PO PRN (10:59)
[2021-08-19] MEDS: PANTOPRAZOLE 40 MG/10 ML VIAL INJ IV SCH (11:00)
[2021-08-19] MEDS: ENOXAPARIN SOD 40 MG/0.4 ML SYRINGE SC SCH (11:01)
[2021-08-19] MEDS: ASCORBIC ACID 500 MG TAB PO SCH (11:01)
[2021-08-19] MEDS: CHOLECALCIFEROL (VITD3) 2,000 UNIT CAP/TAB PO SCH (11:01)
[2021-08-19] MEDS: TOPIRAMATE 25 MG TAB PO SCH (11:03)
[2021-08-19] MEDS: busPIRone HCL 10 MG TAB PO SCH (12:20)
[2021-08-19 13:00] VITALS: BP 90/65
[2021-08-19] MEDS ORDERED: ASPI-378 PO (15:45)
[2021-08-19] MEDS ORDERED: ASCO500T11 PO (15:45)
[2021-08-19] MEDS ORDERED: CHOL20007 PO (15:45)
[2021-08-19] MEDS ORDERED: MIDO5TAB3 PO (15:45)
[2021-08-19] MEDS ORDERED: ZINC220T6 PO (15:45)
[2021-08-19] MEDS ORDERED: DEX4T PO (15:45)
[2021-08-19] MEDS ORDERED: DEXT1SYP9 PO (15:45)
[2021-08-19 17:00] VITALS: BP 106/74
[2021-08-19 17:49] VITALS: BP 104/67
== END 2021-08-19 19:35 | disposition home or self-care (01) | DRG 137 ==
LOC: ER 12:35 → TELE 21:52 → TELE-WESTW 23:53 → TELE-EAST 08-17 17:00
PROVIDERS: ADMIT Nurse Practitioner; ATTEND Internal Medicine
DX: U07.1 COVID-19 (principal); I95.9 Hypotension, unspecified; E66.9 Obesity, unspecified; F32.A Depression, unspecified; F11.20 Opioid dependence, uncomplicated; G89.29 Other chronic pain; I10 Essential (primary) hypertension; F41.9 Anxiety disorder, unspecified; J45.909 Unspecified asthma, uncomplicated; Z98.51 Tubal ligation status; Z83.3 Family history of diabetes mellitus; Z80.9 Family history of malignant neoplasm, unspecified; Z98.84 Bariatric surgery status
CPT/HCPCS: 36415; 70498; 71045; 71260; 74177; 80048; 80053; 81001; 81025; 82024; 82306; 82533; 82728; 83605; 84244; 84439; 84443; 84484; 85025; 85379; 87426; 93005; 94640; 96361; 96365; 96367; 99291; C9113; G0378; J1100; J2405

== ENCOUNTER 2021-10-02 22:23 | Inpatient (IN) | payer MEDICAID ==
[~2021-10-02] VITALS: Ht 170.2 cm; Wt 111.0 kg
[~2021-10-02 22:23] MED LIST changes: +ASCO500T11 PO; +DEX4T PO; +DEXT1SYP9 PO; +DULO20CA PO; +GABA-339 PO; -GABA300C10 PO; +MIDO5TAB3 PO; +ZINC220T6 PO
[2021-10-02 23:22] LABS: Basophils # (auto) 0 10 ^3/uL (0-0.2); Basophils % (auto) 0.8 % (0.0-2.0); Eosinophils # (auto) 0.1 10 ^3/uL (0-0.8); Hematocrit 34.7 % (36.0-46.0); Hemoglobin 11.9 g/dL (12.2-16.2); Lymphocytes % (auto) 35.6 % (10.0-50.0); Mean Corpuscular Hemoglobin 31.4 pg (28.0-32.0); Mean Corpuscular Hgb Conc. 34.3 g/dL (32.0-36.0); Mean Corpuscular Volume 91.5 fL (80.0-100.0); Monocytes # (auto) 0.4 10 ^3/uL (0-1.3); Monocytes % (auto) 6.8 % (0.0-12.0); Neutrophils # (auto) 3.1 10 ^3/uL (1.6-8.6); Neutrophils % (auto) 54.8 % (37.0-80.0); Red Cell Distribution Width 14.5 % (11.8-14.3); White Blood Cell 5.7 10^3/uL (4.4-10.8)
[2021-10-02] MEDS ORDERED: DexAMETHasone SOD PHOS 10MG/1ML VIAL INJ IV ONE (23:30)
[2021-10-02] MEDS ORDERED: SODIUM CHLORIDE 0.9% 500 ML IV ONE (23:30)
[2021-10-02 23:40] LABS: Anion Gap 6 (5-15); Blood Urea Nitrogen 20 mg/dL (7-18); Calcium 8.4 mg/dL (8.5-10.1); Carbon Dioxide 25 mmol/L (21-32); Chloride 108 mmol/L (98-107); Glucose 81 mg/dL (74-106); Magnesium 2.5 mg/dL (1.6-2.6); Potassium 3.8 mmol/L (3.5-5.1); Sodium 139 mmol/L (136-145)
[2021-10-02 23:42] LABS: Albumin 3.7 g/dL (3.4-5.0); BUN/Creatinine Ratio 18.9; GFR African American 71 mL/min; GFR Non-African American 59 mL/min
[2021-10-02 23:58] LABS: Alanine Aminotransferase 23 U/L (13-56); Alkaline Phosphatase 70 U/L (45-117); Aspartate Aminotransferase 14 U/L (15-37); Bilirubin, Total 0.5 mg/dL (0.2-1.0); Total Protein 7.1 g/dL (6.4-8.2)
[2021-10-03 00:35] LABS: Urine Bacteria NONE SEEN /hpf (None Seen); Urine Blood Negative /uL (Negative); Urine Hyaline Cast MANY /lpf (0 - 2); Urine Mucus FEW (None Seen); Urine Specific Gravity 1.027 (1.001-1.035); Urine WBC 2 /hpf (0 - 5)
[2021-10-03] MEDS ORDERED: SODIUM CHLORIDE 0.9% 1,000 ML IV ONE ×2 (01:45→04:00)
[2021-10-03] MEDS ORDERED: IOHEXOL 350 MG/ML 100ML IJ ONE (05:32)
[2021-10-03] MEDS ORDERED: NITROGLYCERIN 0.4 MG SL TAB SL PRN (11:45)
[2021-10-03] MEDS ORDERED: DOCUSATE SOD 100 MG CAP PO PRN (11:45)
[2021-10-03] MEDS ORDERED: ONDANSETRON HCL 4 MG/2 ML VIAL IV PRN (11:45)
[2021-10-03] MEDS ORDERED: ACETAMINOPHEN 325 MG TAB PO PRN (11:45)
[2021-10-03] MEDS ORDERED: MORPHINE SULFATE INJECTION 2 MG/ML SYRG IV PRN (11:45)
[2021-10-03] MEDS ORDERED: HYDROcodone-ACET 5/325MG TAB PO PRN (11:45)
[2021-10-03 14:00] VITALS: BP 101/49
[2021-10-03] MEDS: SODIUM CHLORIDE 0.9% 1,000 ML IV SCH ×2 (14:32→21:33)
[2021-10-03] MEDS ORDERED: diphenhdrAMINE HCL 25 MG CAP PO PRN (15:30)
[2021-10-03 17:00] VITALS: BP 100/50
[2021-10-03] MEDS ORDERED: OXYCODONE W/ ACETAMINOPHEN 5/325MG TABLET PO ONE (18:00)
[2021-10-03] MEDS: busPIRone HCL 10 MG TAB PO SCH (21:30)
[2021-10-03] MEDS: DULoxetine HCL 30 MG CAP PO SCH (21:31)
[2021-10-03] MEDS: TOPIRAMATE 25 MG TAB PO SCH (21:31)
[2021-10-03] MEDS: QUEtiapine FUMARATE 100 MG TAB PO SCH (21:32)
[2021-10-03] MEDS: PANTOPRAZOLE 40 MG/10 ML VIAL INJ IV SCH (21:33)
[2021-10-03 21:49] VITALS: BP 91/51
[2021-10-04] VITALS (8 sets, daily range): BP systolic 58–113; BP diastolic 31–81
[2021-10-04] MEDS: SODIUM CHLORIDE 0.9% 1,000 ML IV SCH ×3 (01:00→12:30)
[2021-10-04 05:59] LABS: Hematocrit 28.5 % (36.0-46.0); Hemoglobin 9.9 g/dL (12.2-16.2); Mean Corpuscular Hgb Conc. 34.8 g/dL (32.0-36.0); Mean Corpuscular Volume 91.8 fL (80.0-100.0); Red Blood Cells 3.11 10^6/uL (4.0-5.20); Red Cell Distribution Width 14.4 % (11.8-14.3); White Blood Cell 4.3 10^3/uL (4.4-10.8)
[2021-10-04] MEDS: DULoxetine HCL 30 MG CAP PO SCH ×2 (06:09→21:38)
[2021-10-04] MEDS: busPIRone HCL 10 MG TAB PO SCH ×3 (06:10→21:37)
[2021-10-04 06:11] LABS: Albumin 2.6 g/dL (3.4-5.0); Calcium 7.8 mg/dL (8.5-10.1)
[2021-10-04 06:14] LABS: BUN/Creatinine Ratio 19.4; Band Neutrophils % (manual) 0; Basophils % (manual) 0 (0.0-2.0); Blast Cells 0; Metamyelocytes % 0; Myelocytes % 0; Promyelocytes % 0
[2021-10-04 06:16] LABS: Bilirubin, Total 0.4 mg/dL (0.2-1.0); Total Protein 5.4 g/dL (6.4-8.2)
[2021-10-04] MEDS ORDERED: DULoxetine HCL 30 MG CAP PO SCH (07:00)
[2021-10-04 08:52] LABS: Eosinophils % (manual) 1 (0-7); Lymphocytes % (manual) 52 (10.0-50.0); Monocytes % (manual) 4 (0-12); Reactive Lymphocytes 2
[2021-10-04] MEDS: PANTOPRAZOLE 40 MG/10 ML VIAL INJ IV SCH (09:42)
[2021-10-04] MEDS: LORATADINE 10 MG TAB PO SCH (09:43)
[2021-10-04] MEDS: TOPIRAMATE 25 MG TAB PO SCH ×2 (09:44→21:39)
[2021-10-04] MEDS: ENOXAPARIN SOD 40 MG/0.4 ML SYRINGE SC SCH (09:44)
[2021-10-04] MEDS ORDERED: MIDODRINE HCL 10 MG TAB PO ONE (16:00)
[2021-10-04] MEDS ORDERED: SODIUM CHLORIDE 0.9% 500 ML IV ONE (16:45)
[2021-10-04] MEDS: MIDODRINE HCL 10 MG TAB PO SCH (17:18)
[2021-10-04] MEDS: FAMOTIDINE 20 MG TAB PO SCH (21:38)
[2021-10-04] MEDS: QUEtiapine FUMARATE 100 MG TAB PO SCH (21:39)
[2021-10-05] MEDS: SODIUM CHLORIDE 0.9% 1,000 ML IV SCH ×3 (01:01→17:12)
[2021-10-05 05:00] VITALS: BP 90/51
[2021-10-05] MEDS: busPIRone HCL 10 MG TAB PO SCH ×3 (05:08→22:48)
[2021-10-05] MEDS: MIDODRINE HCL 10 MG TAB PO SCH (05:09)
[2021-10-05 06:03] LABS: Basophils # (auto) 0 10 ^3/uL (0-0.2); Basophils % (auto) 0.6 % (0.0-2.0); Eosinophils # (auto) 0.1 10 ^3/uL (0-0.8); Eosinophils % (auto) 2.5 % (0.0-7.0); Hematocrit 28.2 % (36.0-46.0); Hemoglobin 9.7 g/dL (12.2-16.2); Lymphocytes # (auto) 2.1 10 ^3/uL (0.4-5.4); Mean Corpuscular Hemoglobin 31.6 pg (28.0-32.0); Mean Corpuscular Hgb Conc. 34.3 g/dL (32.0-36.0); Monocytes # (auto) 0.3 10 ^3/uL (0-1.3); Monocytes % (auto) 7.5 % (0.0-12.0); Neutrophils # (auto) 1.7 10 ^3/uL (1.6-8.6); Neutrophils % (auto) 39.4 % (37.0-80.0); Red Blood Cells 3.06 10^6/uL (4.0-5.20); Red Cell Distribution Width 14.6 % (11.8-14.3); White Blood Cell 4.3 10^3/uL (4.4-10.8)
[2021-10-05] MEDS: DULoxetine HCL 30 MG CAP PO SCH ×2 (06:28→22:50)
[2021-10-05 06:41] LABS: Calcium 7.8 mg/dL (8.5-10.1); Potassium 3.9 mmol/L (3.5-5.1)
[2021-10-05 06:46] LABS: BUN/Creatinine Ratio 21.5
[2021-10-05 08:48] LABS: Alcohol, Urine < 3.0 mg/dL (0-10); Amphetamine Screen, Urine NEGATIVE (NEGATIVE); Barbiturate Scree,Urine NEGATIVE (NEGATIVE); Benzodiazephine Screen, Urine NEGATIVE (NEGATIVE); Cannabinoid Screen, Urine NEGATIVE (NEGATIVE); Cocaine Screen, Urine NEGATIVE (NEGATIVE); Opiate Scree,Urine NEGATIVE (NEGATIVE); Phencyclidine Screen, Urine NEGATIVE (NEGATIVE)
[2021-10-05 09:00] VITALS: BP 139/88
[2021-10-05] MEDS: FAMOTIDINE 20 MG TAB PO SCH ×2 (09:24→22:50)
[2021-10-05] MEDS: LORATADINE 10 MG TAB PO SCH (09:24)
[2021-10-05] MEDS: ENOXAPARIN SOD 40 MG/0.4 ML SYRINGE SC SCH (09:25)
[2021-10-05] MEDS: TOPIRAMATE 25 MG TAB PO SCH ×2 (09:25→22:51)
[2021-10-05 13:00] VITALS: BP 100/66
[2021-10-05] MEDS ORDERED: HYDROCORTISONE SOD SUCC 100 MG/2ML INJ VIAL IV ONE (13:15)
[2021-10-05 14:15] LABS: % Iron Saturation 16.2 % (15-50)
[2021-10-05] MEDS: KETOROLAC TROMETH 30 MG/ML 1ML VIAL IV PRN ×2 (16:44→23:16)
[2021-10-05 17:00] VITALS: BP 100/49
[2021-10-05 22:00] VITALS: BP 114/74
[2021-10-05] MEDS: HYDROCORTISONE SOD SUCC 100 MG/2ML INJ VIAL IV SCH (22:48)
[2021-10-05] MEDS: QUEtiapine FUMARATE 100 MG TAB PO SCH (22:50)
[2021-10-06] MEDS: SODIUM CHLORIDE 0.9% 1,000 ML IV SCH ×3 (00:16→22:45)
[2021-10-06 05:00] VITALS: BP 132/85
[2021-10-06] MEDS: DULoxetine HCL 30 MG CAP PO SCH ×2 (06:34→21:23)
[2021-10-06] MEDS: busPIRone HCL 10 MG TAB PO SCH ×3 (06:34→21:23)
[2021-10-06] MEDS: KETOROLAC TROMETH 30 MG/ML 1ML VIAL IV PRN ×2 (06:35→17:15)
[2021-10-06 06:50] LABS: Hematocrit 31.4 % (36.0-46.0); Hemoglobin 11.1 g/dL (12.2-16.2)
[2021-10-06 06:56] LABS: Potassium 4.4 mmol/L (3.5-5.1)
[2021-10-06 06:58] LABS: Magnesium 2.4 mg/dL (1.6-2.6)
[2021-10-06 09:00] VITALS: BP 114/75
[2021-10-06] MEDS: HYDROCORTISONE SOD SUCC 100 MG/2ML INJ VIAL IV SCH ×2 (09:54→21:23)
[2021-10-06] MEDS: FAMOTIDINE 20 MG TAB PO SCH ×2 (09:56→21:24)
[2021-10-06] MEDS: TOPIRAMATE 25 MG TAB PO SCH ×2 (09:56→21:26)
[2021-10-06] MEDS: ENOXAPARIN SOD 40 MG/0.4 ML SYRINGE SC SCH (09:57)
[2021-10-06 13:00] VITALS: BP 154/70
[2021-10-06 17:00] VITALS: BP 134/65
[2021-10-06] MEDS: QUEtiapine FUMARATE 100 MG TAB PO SCH (21:24)
[2021-10-06 21:56] VITALS: BP 102/58
[2021-10-06 23:22] VITALS: BP 115/70
[2021-10-07] MEDS: KETOROLAC TROMETH 30 MG/ML 1ML VIAL IV PRN (03:27)
[2021-10-07] MEDS: SODIUM CHLORIDE 0.9% 1,000 ML IV SCH (03:35)
[2021-10-07 05:00] VITALS: BP 123/81
[2021-10-07] MEDS: busPIRone HCL 10 MG TAB PO SCH (06:14)
[2021-10-07] MEDS: DULoxetine HCL 30 MG CAP PO SCH (06:14)
[2021-10-07 09:00] VITALS: BP 142/79
[2021-10-07] MEDS: TOPIRAMATE 25 MG TAB PO SCH (10:00)
[2021-10-07] MEDS: ENOXAPARIN SOD 40 MG/0.4 ML SYRINGE SC SCH (10:00)
[2021-10-07] MEDS: HYDROCORTISONE SOD SUCC 100 MG/2ML INJ VIAL IV SCH (10:00)
[2021-10-07] MEDS: FAMOTIDINE 20 MG TAB PO SCH (10:00)
[2021-10-07 12:15] VITALS: BP 142/79
[2021-10-07 13:00] VITALS: BP 156/106
== END 2021-10-07 13:17 | disposition home or self-care (01) | DRG 207 ==
LOC: ER 22:28 → TELE 10-03 11:34 → TELE-WESTW 10-03 13:03
PROVIDERS: ADMIT Internal Medicine; ATTEND Internal Medicine
DX: I95.9 Hypotension, unspecified (principal); N17.0 Acute kidney failure with tubular necrosis; E88.09 Other disorders of plasma-protein metabolism, not elsewhere classified; F32.A Depression, unspecified; G40.909 Epilepsy, unspecified, not intractable, without status epilepticus; K21.9 Gastro-esophageal reflux disease without esophagitis; E66.9 Obesity, unspecified; F60.9 Personality disorder, unspecified; F11.20 Opioid dependence, uncomplicated; G89.29 Other chronic pain; I10 Essential (primary) hypertension; F41.9 Anxiety disorder, unspecified; M54.9 Dorsalgia, unspecified; Z20.822 Contact with and (suspected) exposure to COVID-19; J45.909 Unspecified asthma, uncomplicated; Z71.3 Dietary counseling and surveillance; Z83.3 Family history of diabetes mellitus; Z79.899 Other long term (current) drug therapy; Z80.3 Family history of malignant neoplasm of breast; Z86.16 Personal history of COVID-19; Z68.38 Body mass index [BMI] 38.0-38.9, adult; Z98.51 Tubal ligation status
CPT/HCPCS: 36415; 51702; 71045; 71275; 74018; 80048; 80053; 80307; 81001; 82533; 83540; 83550; 83605; 83735; 83880; 84132; 84436; 84443; 84481; 84484; 85007; 85014; 85018; 85025; 85027; 93306; 93970; 96361; 96374; 99291; C9113; G0378; J1100; J1885; J2405

== ENCOUNTER 2021-10-18 21:24 | Emergency (ER) | payer MEDICAID ==
[~2021-10-18] VITALS: Ht 170.2 cm; Wt 92.1 kg
[2021-10-18 23:05] LABS: Urine Bacteria FEW /hpf (None Seen); Urine Blood Negative /uL (Negative); Urine Mucus FEW (None Seen); Urine Specific Gravity 1.021 (1.001-1.035); Urine WBC 131 /hpf (0 - 5)
[2021-10-18 23:26] VITALS: BP 123/62
[2021-10-18] MEDS ORDERED: CIPROFLOXACIN HCL 500 MG TAB PO ONE (23:30)
[2021-10-18] MEDS ORDERED: CIPR-173 PO (23:48)
== END 2021-10-18 23:59 | disposition home or self-care (01) ==
LOC: ER 21:24
DX: N39.0 Urinary tract infection, site not specified (principal); I11.0 Hypertensive heart disease with heart failure; I50.9 Heart failure, unspecified; J45.909 Unspecified asthma, uncomplicated; Z86.2 Personal history of diseases of the blood and blood-forming organs and certain disorders involving the immune mechanism; Z79.899 Other long term (current) drug therapy
CPT/HCPCS: 81001; 81025

== ENCOUNTER 2021-11-26 16:48 | Emergency (ER) | payer MEDICAID ==
[~2021-11-26] VITALS: Ht 170.2 cm; Wt 83.5 kg
[~2021-11-26 16:48] MED LIST changes: +CIPR-173 PO
[2021-11-26 17:49] LABS: Basophils # (auto) 0.1 10 ^3/uL (0-0.2); Basophils % (auto) 1.7 % (0.0-2.0); Eosinophils # (auto) 0.1 10 ^3/uL (0-0.8); Eosinophils % (auto) 2.8 % (0.0-7.0); Hematocrit 35.9 % (36.0-46.0); Hemoglobin 12.3 g/dL (12.2-16.2); Lymphocytes # (auto) 2.1 10 ^3/uL (0.4-5.4); Lymphocytes % (auto) 47.7 % (10.0-50.0); Mean Corpuscular Hemoglobin 31.5 pg (28.0-32.0); Mean Corpuscular Hgb Conc. 34.3 g/dL (32.0-36.0); Monocytes # (auto) 0.3 10 ^3/uL (0-1.3); Monocytes % (auto) 6.6 % (0.0-12.0); Neutrophils # (auto) 1.8 10 ^3/uL (1.6-8.6); Neutrophils % (auto) 41.2 % (37.0-80.0); Nucleated Red Blood Cells % 0.1 %; White Blood Cell 4.4 10^3/uL (4.4-10.8)
[2021-11-26 18:04] LABS: Albumin 3.6 g/dL (3.4-5.0); BUN/Creatinine Ratio 20.4; Magnesium 2.5 mg/dL (1.6-2.6); Potassium 4.3 mmol/L (3.5-5.1)
[2021-11-26 18:07] LABS: Bilirubin, Total 0.4 mg/dL (0.2-1.0); Total Protein 7.3 g/dL (6.4-8.2)
[2021-11-26 22:40] VITALS: BP 105/61
== END 2021-11-26 22:36 | disposition home or self-care (01) ==
LOC: ER 16:48
DX: I95.9 Hypotension, unspecified (principal); J45.909 Unspecified asthma, uncomplicated; I11.0 Hypertensive heart disease with heart failure; I50.9 Heart failure, unspecified; Z98.51 Tubal ligation status
CPT/HCPCS: 36415; 71045; 80053; 83735; 83880; 84484; 85025; 93005

== ENCOUNTER 2022-01-02 17:00 | Emergency (ER) | payer MEDICAID ==
[~2022-01-02] VITALS: Ht 172.7 cm; Wt 91.6 kg
[2022-01-02] MEDS ORDERED: SODIUM CHLORIDE 0.9% 500 ML IVB ONE (17:30)
[2022-01-02] MEDS ORDERED: PANTOPRAZOLE 40 MG/10 ML VIAL INJ IV ONE (17:30)
[2022-01-02 18:05] LABS: Albumin 3.9 g/dL (3.4-5.0); Potassium 3.6 mmol/L (3.5-5.1)
[2022-01-02 18:08] LABS: BUN/Creatinine Ratio 19.8; Basophils # (auto) 0 10 ^3/uL (0-0.2); Basophils % (auto) 0.5 % (0.0-2.0); Bilirubin, Total 0.6 mg/dL (0.2-1.0); Eosinophils # (auto) 0.1 10 ^3/uL (0-0.8); Eosinophils % (auto) 1.6 % (0.0-7.0); Hematocrit 38.3 % (36.0-46.0); Hemoglobin 12.5 g/dL (12.2-16.2); Lymphocytes # (auto) 1.8 10 ^3/uL (0.4-5.4); Mean Corpuscular Hemoglobin 29.8 pg (28.0-32.0); Mean Corpuscular Hgb Conc. 32.6 g/dL (32.0-36.0); Mean Corpuscular Volume 91.4 fL (80.0-100.0); Monocytes # (auto) 0.4 10 ^3/uL (0-1.3); Monocytes % (auto) 7.3 % (0.0-12.0); Neutrophils # (auto) 3.7 10 ^3/uL (1.6-8.6); Neutrophils % (auto) 61.6 % (37.0-80.0); Red Blood Cells 4.19 10^6/uL (4.0-5.20); Red Cell Distribution Width 13.4 % (11.8-14.3); Total Protein 7.7 g/dL (6.4-8.2); White Blood Cell 6.1 10^3/uL (4.4-10.8)
[2022-01-02 19:19] LABS: Urine Bacteria NONE SEEN /hpf (None Seen); Urine Blood Negative /uL (Negative); Urine Hyaline Cast FEW /lpf (0 - 2); Urine Mucus FEW (None Seen); Urine Specific Gravity 1.032 (1.001-1.035); Urine WBC 1 /hpf (0 - 5)
[2022-01-02 20:00] VITALS: BP 124/64
== END 2022-01-02 20:14 | disposition home or self-care (01) ==
LOC: EDBD 17:00 → ER 17:00
DX: F41.9 Anxiety disorder, unspecified (principal); K29.00 Acute gastritis without bleeding
CPT/HCPCS: 36415; 76705; 80053; 81001; 82150; 83690; 85025; 96361; 96374; 99284; C9113; J7040

== ENCOUNTER → 2022-01-08 | Emergency (ER) | payer MEDICAID ==
[~2022-01-08] VITALS: Ht 170.2 cm; Wt 92.1 kg
[~2022-01-08] MED LIST changes: +KETOROLAC TROMETH 60MG/2ML VIAL IM ONE
[2022-01-08 13:58] VITALS: BP 117/79
== END | disposition home or self-care (01) ==
LOC: ER 10:29
DX: S83.91XA Sprain of unspecified site of right knee, initial encounter (principal); M17.11 Unilateral primary osteoarthritis, right knee; I11.0 Hypertensive heart disease with heart failure; I50.9 Heart failure, unspecified; J45.909 Unspecified asthma, uncomplicated; Z86.2 Personal history of diseases of the blood and blood-forming organs and certain disorders involving the immune mechanism; Z79.899 Other long term (current) drug therapy; W22.8XXA Striking against or struck by other objects, initial encounter; Y93.89 Activity, other specified; Y92.89 Other specified places as the place of occurrence of the external cause; Y99.8 Other external cause status
CPT/HCPCS: 73562; 93971; 96372; 99284; J1885

== ENCOUNTER 2022-02-03 09:48 | Emergency (ER) | payer MEDICAID ==
[~2022-02-03] VITALS: Ht 162.6 cm; Wt 73.0 kg
[~2022-02-03 09:48] MED LIST changes: -KETOROLAC TROMETH 60MG/2ML VIAL IM ONE
[2022-02-03 10:33] LABS: Basophils # (auto) 0 10 ^3/uL (0-0.2); Basophils % (auto) 0.7 % (0.0-2.0); Eosinophils # (auto) 0.1 10 ^3/uL (0-0.8); Eosinophils % (auto) 2.7 % (0.0-7.0); Hematocrit 37.8 % (36.0-46.0); Hemoglobin 12.7 g/dL (12.2-16.2); Lymphocytes % (auto) 24.1 % (10.0-50.0); Mean Corpuscular Hemoglobin 30.9 pg (28.0-32.0); Mean Corpuscular Hgb Conc. 33.6 g/dL (32.0-36.0); Monocytes # (auto) 0.2 10 ^3/uL (0-1.3); Monocytes % (auto) 5.8 % (0.0-12.0); Neutrophils # (auto) 2.9 10 ^3/uL (1.6-8.6); Neutrophils % (auto) 66.7 % (37.0-80.0); Red Blood Cells 4.11 10^6/uL (4.0-5.20); Red Cell Distribution Width 13.3 % (11.8-14.3); White Blood Cell 4.3 10^3/uL (4.4-10.8)
[2022-02-03 10:51] LABS: Salicylate < 1.7 mg/dL (2.8-20.0)
[2022-02-03 10:52] LABS: Acetaminophen < 2.0 ug/mL (10-30)
[2022-02-03 10:54] LABS: Albumin 3.5 g/dL (3.4-5.0); Anion Gap 6 (5-15); Blood Urea Nitrogen 14 mg/dL (7-18); Calcium 8.7 mg/dL (8.5-10.1); Carbon Dioxide 25 mmol/L (21-32); Chloride 111 mmol/L (98-107); Glucose 110 mg/dL (74-106); Potassium 3.6 mmol/L (3.5-5.1); Sodium 142 mmol/L (136-145)
[2022-02-03 11:00] LABS: Alanine Aminotransferase 21 U/L (13-56); Alkaline Phosphatase 70 U/L (45-117); Aspartate Aminotransferase 17 U/L (15-37); BUN/Creatinine Ratio 16.9; Bilirubin, Total 0.5 mg/dL (0.2-1.0); Blood Alcohol < 3.0 mg/dL (0-5); GFR African American 94 mL/min; GFR Non-African American 77 mL/min
[2022-02-03 11:05] VITALS: BP 115/72
== END 2022-02-03 13:09 | disposition home or self-care (01) ==
LOC: EDUNIT# 09:48 → ER 09:48 → EDBD 09:48 → ER 13:09
DX: T42.4X1A Poisoning by benzodiazepines, accidental (unintentional), initial encounter (principal); T40.2X1A Poisoning by other opioids, accidental (unintentional), initial encounter; I11.0 Hypertensive heart disease with heart failure; I50.9 Heart failure, unspecified; J45.909 Unspecified asthma, uncomplicated; Z79.899 Other long term (current) drug therapy; Y92.89 Other specified places as the place of occurrence of the external cause
CPT/HCPCS: 36415; 70450; 80053; 80320; 80329; 85025

== ENCOUNTER 2022-03-20 15:01 | Emergency (ER) | payer MEDICAID ==
[~2022-03-20] VITALS: Ht 170.2 cm; Wt 97.0 kg
[2022-03-20] MEDS ORDERED: KETOROLAC TROMETH 30 MG/ML 1ML VIAL IM ONE (20:30)
[2022-03-20 21:42] VITALS: BP 141/96
== END 2022-03-20 21:45 | disposition home or self-care (01) ==
LOC: ER 15:01
DX: G89.29 Other chronic pain (principal); M25.561 Pain in right knee; I11.0 Hypertensive heart disease with heart failure; I50.9 Heart failure, unspecified; J45.909 Unspecified asthma, uncomplicated; Z86.2 Personal history of diseases of the blood and blood-forming organs and certain disorders involving the immune mechanism; Z79.899 Other long term (current) drug therapy
CPT/HCPCS: 93971; 96372; 99284; J1885

== ENCOUNTER 2022-04-20 15:02 | Inpatient (IN) | payer MEDICAID ==
[~2022-04-20] VITALS: Ht 170.2 cm; Wt 220.0 kg
[2022-04-20 15:42] LABS: Basophils # (auto) 0 10 ^3/uL (0-0.2); Basophils % (auto) 0.9 % (0.0-2.0); Eosinophils # (auto) 0.1 10 ^3/uL (0-0.8); Hematocrit 37.2 % (36.0-46.0); Hemoglobin 12.1 g/dL (12.2-16.2); Lymphocytes # (auto) 2.3 10 ^3/uL (0.4-5.4); Lymphocytes % (auto) 50.9 % (10.0-50.0); Mean Corpuscular Hgb Conc. 32.5 g/dL (32.0-36.0); Mean Corpuscular Volume 92.1 fL (80.0-100.0); Monocytes # (auto) 0.4 10 ^3/uL (0-1.3); Monocytes % (auto) 8.2 % (0.0-12.0); Neutrophils # (auto) 1.7 10 ^3/uL (1.6-8.6); Red Blood Cells 4.04 10^6/uL (4.0-5.20); Red Cell Distribution Width 13.8 % (11.8-14.3); White Blood Cell 4.5 10^3/uL (4.4-10.8)
[2022-04-20] MEDS ORDERED: NITROGLYCERIN 0.4 MG SL TAB SL ONE (16:00)
[2022-04-20] MEDS ORDERED: SODIUM CHLORIDE 0.9% 1,000 ML IV ONE (16:00)
[2022-04-20] MEDS ORDERED: ASPirin 325 MG TAB PO ONE (16:00)
[2022-04-20 16:11] LABS: Albumin 3.6 g/dL (3.4-5.0); Calcium 8.4 mg/dL (8.5-10.1); Potassium 4.2 mmol/L (3.5-5.1)
[2022-04-20 16:14] LABS: BUN/Creatinine Ratio 26.3; Bilirubin, Total 0.4 mg/dL (0.2-1.0); INR 0.96 (0.9-1.15); Partial Thromboplastin Time 26.9 sec (24.6-33.4); Total Protein 7.1 g/dL (6.4-8.2)
[2022-04-20] MEDS ORDERED: DEXTROSE (50%) 50ML SYRG IV PRN (22:00)
[2022-04-20] MEDS ORDERED: ACETAMINOPHEN 325 MG TAB PO PRN (22:00)
[2022-04-20] MEDS ORDERED: MORPHINE SULFATE INJ 2 MG/ml SYRG IV PRN ×2 (22:00→23:00)
[2022-04-20] MEDS ORDERED: HYDROcodone-ACET 5/325MG TAB PO PRN (22:00)
[2022-04-20] MEDS ORDERED: DOCUSATE SOD 100 MG CAP PO PRN (22:00)
[2022-04-20] MEDS ORDERED: ONDANSETRON HCL 4 MG/2 ML VIAL IV PRN (22:00)
[2022-04-20] MEDS ORDERED: NITROGLYCERIN 0.4 MG SL TAB SL PRN (23:00)
[2022-04-21 04:15] LABS: Basophils # (auto) 0 10 ^3/uL (0-0.2); Basophils % (auto) 0.6 % (0.0-2.0); Eosinophils # (auto) 0.2 10 ^3/uL (0-0.8); Eosinophils % (auto) 3.8 % (0.0-7.0); Hematocrit 36.3 % (36.0-46.0); Hemoglobin 12.1 g/dL (12.2-16.2); Lymphocytes # (auto) 2.5 10 ^3/uL (0.4-5.4); Lymphocytes % (auto) 48.8 % (10.0-50.0); Mean Corpuscular Hemoglobin 29.9 pg (28.0-32.0); Mean Corpuscular Hgb Conc. 33.2 g/dL (32.0-36.0); Mean Corpuscular Volume 90.2 fL (80.0-100.0); Monocytes # (auto) 0.4 10 ^3/uL (0-1.3); Monocytes % (auto) 8.6 % (0.0-12.0); Neutrophils # (auto) 1.9 10 ^3/uL (1.6-8.6); Neutrophils % (auto) 38.2 % (37.0-80.0); Nucleated Red Blood Cells % 0.1 %; Red Blood Cells 4.03 10^6/uL (4.0-5.20); Red Cell Distribution Width 13.5 % (11.8-14.3)
[2022-04-21 04:33] LABS: Albumin 3.8 g/dL (3.4-5.0); Calcium 8.5 mg/dL (8.5-10.1); Potassium 3.9 mmol/L (3.5-5.1)
[2022-04-21 04:40] LABS: BUN/Creatinine Ratio 24.1; Bilirubin, Total 0.6 mg/dL (0.2-1.0); Total Protein 7.2 g/dL (6.4-8.2)
[2022-04-21] MEDS: InsuLIN REG 1unit/0.01ml Soln (100units/ml) SC SCH ×4 (07:20→11:33)
[2022-04-21] MEDS: SODIUM CHLOR 0.9% PF (SALINE LOCK) 10ML VIAL/SYR IV SCH ×3 (07:20→11:33)
[2022-04-21] MEDS: ACCU-CHEK COMFORT CURVE STRIP VI SCH ×4 (07:20→11:33)
[2022-04-21] MEDS: FAMOTIDINE (10MG/ML) 2ML VL IV SCH ×2 (07:21→11:25)
[2022-04-21] MEDS ORDERED: ASPirin 81 mg TAB PO SCH (10:00)
[2022-04-21 14:00] VITALS: BP 98/60
[2022-04-21] MEDS ORDERED: ATORVASTATIN 20 MG TAB PO SCH (22:00)
== END 2022-04-21 15:32 | disposition home or self-care (01) | DRG 203 ==
LOC: ER 15:02 → TELE 22:56
PROVIDERS: ADMIT Nurse Practitioner Family; ATTEND Internal Medicine
PROC: 05HC33Z Insertion of Infusion Device into Left Basilic Vein, Percutaneous Approach (ICD-10-PCS; principal; 2022-04-21)
PROC: B54NZZA Ultrasonography of Left Upper Extremity Veins, Guidance (ICD-10-PCS; 2022-04-21)
DX: R07.89 Other chest pain (principal); I11.0 Hypertensive heart disease with heart failure; D63.8 Anemia in other chronic diseases classified elsewhere; I50.32 Chronic diastolic (congestive) heart failure; Z20.822 Contact with and (suspected) exposure to COVID-19; E16.2 Hypoglycemia, unspecified; E78.5 Hyperlipidemia, unspecified; F11.20 Opioid dependence, uncomplicated; F32.A Depression, unspecified; F41.9 Anxiety disorder, unspecified; G89.4 Chronic pain syndrome; J45.909 Unspecified asthma, uncomplicated; Z82.49 Family history of ischemic heart disease and other diseases of the circulatory system; Z83.3 Family history of diabetes mellitus; Z80.3 Family history of malignant neoplasm of breast
CPT/HCPCS: 36415; 71045; 80053; 80061; 82962; 83036; 83690; 83880; 84484; 85025; 85379; 85610; 85730; 87426; 93005; 96372; 96374; G0378; J1815; J3490